=== PATIENT | male | born 1965 | race Caucasian/White ===

== ENCOUNTER 2021-12-11 16:59 | Emergency (ER) | payer OTHER, SELFPAY ==
[2021-12-11 17:02] VITALS: BP 204/107; PULSE 93; RESP 18; TEMP 36.6; O2SAT 98; BMI 34.4
--- NOTE | 2021-12-11 17:31 | CRLHL7_ITS ---
For Patients: As a result of the Century Cures Act, medical imaging exams and procedure reports are released immediately into your electronic medical record. You may view this report before your referring provider. If you have questions, please contact your health care provider. INDICATION: Abdominal pain. TECHNIQUE: CT abdomen and pelvis without contrast. Coronal and sagittal reformats were generated. COMPARISON: CT of the abdomen and pelvis from 05/24/2019. FINDINGS: Lower chest: Unremarkable. Liver: Unremarkable. Gallbladder and bile ducts: Unremarkable. No stones or inflammation. No biliary dilation. Spleen: Unremarkable. Adjacent splenule. Pancreas: Unremarkable. Adrenal glands: Unremarkable. No nodules. Kidneys and Ureters: Distal right ureteral stone measures approximately 4 mm (2/121) and results in mild right hydronephrosis and hydroureter, as well as extensive perinephric stranding and mild edema. Additional stones in the right kidney lie in the lower pole. Nonobstructing stones in the left kidney. Lymph Nodes and Retroperitoneum: Unremarkable. Vasculature: Unremarkable. GI tract: Unremarkable. Normal in caliber. Prominent submucosal fat in the cecum and ascending colon is nonspecific. Diverticula project from the colon, without inflammatory changes to suggest diverticulitis. Peritoneum/Abdominal Wall: Unremarkable. No mass or infiltration. No free air or free fluid. Bilateral fat containing inguinal hernias. Pelvic Viscera: Unremarkable. Bladder: Unremarkable. Bones: Unremarkable for age. IMPRESSION: 1. Distal right ureteral stone results in mild hydronephrosis and perinephric stranding, as well as edematous changes of the kidney. 2. Nonobstructing left renal calculi. Please note that all CT scans at this facility use dose modulation, iterative reconstruction, and/or weight-based dosing when appropriate to reduce radiation dose to as low as reasonably achievable. Dictated by Kvng Ballard MD @ 12/11/2021 6:26:21 PM (Electronically Signed)
[2021-12-11] MEDS: 0.9 % SODIUM CHLORIDE 1000 ml 1,000 ML IV (17:55)
[2021-12-11 18:00] LABS: Lactate* 2.3 mmol/L (0.5-1.9)
[2021-12-11] MEDS: KETOROLAC 30 MG/ML inj IVP (18:00)
[2021-12-11 18:14] VITALS: BP 198/109; PULSE 96; O2SAT 98
[2021-12-11 18:30] VITALS: BP 194/100; PULSE 94; O2SAT 98
[2021-12-11 18:32] LABS: Albumin* 4.4 g/dL (3.3-5.0); Basophils Percent Auto 0.2 % (0.0-3.0); Eosinophils Percent Auto 0.1 % (0.0-7.0); Hematocrit 41.6 % (37.0-53.0); Hemoglobin* 14.7 gm/dL (13.5-17.5); Immature Granulocytes Abs Auto 0.02 K/uL (0.00-0.30); Lymphocytes Percent Auto 17.8 % (20-44); Mean Corpuscular HGB Conc 35 gm/dL (32-36); Mean Corpuscular Hemoglobin 32 pg (26-34); Mean Corpuscular Volume 90 fL (80-100); Monocytes Percent Auto 5.4 % (0.0-11.0); Neutrophils Percent Auto 76.4 % (42.0-72.0); Platelet Count* 227 K/uL (140-440); RDW Coefficient of Variation % 12.7 % (11.5-15.5); Red Blood Count 4.65 m/uL (4.30-5.90); White Blood Count* 13.51 K/uL (4.50-11.00)
--- NOTE | 2021-12-11 18:32 | ED.GENADULT ---
HPI - General Adult General Chief complaint: Abdominal Pain Stated complaint: Kidney stone Time Seen by Provider: 12/11/21 17:11 Source: patient Mode of arrival: ambulatory Limitations: no limitations History of Present Illness HPI narrative: 56-year-old male coming in today complaining of bilateral low back pain that started 1st thing in the morning today. He states that he has had kidney stones in the past that feel just like this, with pain on both sides. He denies fevers or chills. No vomiting but sometimes feels nauseated. He has been drinking lots of fluids today but has had decreased urine output. He has had a couple episodes of loose stools today. The pain radiates into the anterior abdomen, the right side hurts more than the left. No blood in his urine. No blood in his stools. Related Data Home Medications Medication Instructions Recorded Confirmed glimepiride 4 mg tablet mg 12/11/21 rosuvastatin 10 mg tablet mg 12/11/21 Previous Rx's Medication Instructions Recorded ciprofloxacin HCl 500 mg tablet 500 mg PO BID 7 days #14 tabs 12/11/21 ketorolac 10 mg tablet 10 mg PO TID 5 days #15 tabs 12/11/21 Allergies Allergy/AdvReac Type Severity Reaction Status Date / Time Sulfa (Sulfonamide Allergy Verified 12/11/21 17:06 Antibiotics) Review of Systems Status of ROS: Reports: 10 or more systems reviewed and unremarkable except as noted in History and below [facility] Social History Smoking Status: Never smoker Do you use any of these nicotine containing products: None Second hand tobacco smoke exposure: No How often do you have a drink containing alcohol: 2-3 times a week How many standard drinks containing alcohol do you have on a typical day: 1 or 2 How often do you have six or more drinks on one occasion: Never AUDIT-C Alcohol total score: 3 Non-prescribed substance use: denies use service: No Exam Narrative: Exam Narrative: Well-nourished well-developed patient , very uncomfortable. Alert and oriented. Answers questions appropriately. Mood and affect are appropriate. Thoughts are goal oriented and rational. No tangential or magical thinking noted. Patient speaks in full sentences without needing to catch his breath. HEENT: Normocephalic atraumatic. Pupils are equally round reactive to light. Extraocular muscles are intact. Conjunctivae are moist without any icterus noted. Moist mucous membranes. Posterior pharynx is normal. Neck is soft without any lymphadenopathy or thyromegaly. No masses are appreciated. Cardiovascular: Heart is regular rate and rhythm S1 and S2 are present without any murmurs. Lungs: Clear to auscultation bilaterally no wheezes rhonchi or rales are appreciated. Patient takes deep breaths without any discomfort. Abdomen: Soft and nontender with normal bowel sounds. Slightly distended. No guarding or rebound. No masses or organomegaly appreciated. No CVA tenderness. No suprapubic tenderness. Extremities: Bilateral lower extremities are without edema. Normal DP and PT pulses. Skin: Well perfused without any obvious rashes. Const: Vital Signs, click to edit/add: Vital Signs - 24 hr 12/11/21 17:02 12/11/21 18:14 Temperature 97.9 F Pulse Rate [Right Pulse Oximeter] 93 96 Respiratory Rate 18 Blood Pressure [Ri ght Upper Arm] 204/107 H 198/109 H Pulse Oximetry 98 98 Oxygen Delivery Me thod Room Air Room Air Course Course Hospital Course: IV was established, patient received a L of normal saline and IV Toradol. This was followed with IV Dilaudid as he was still in quite a bit of discomfort. Bladder scan was done, showed only about 70 mL in the bladder. Abdominal CT does show a right-sided distal ureteral stone, 4 mm. White cell count was slightly elevated at 13.4, lactate was elevated at 2.3, creatinine slightly elevated at 1.6. After receiving a L of normal saline patient was able to urinate without difficulty. Vital Signs Vital signs: Initial Vital Signs Temperature 97.9 F 12/11/21 17:02 Temperature Source Temporal Artery Scan 12/11/21 17:02 Pulse Rate 93 12/11/21 17:02 Pulse Rhythm 12/11/21 17:02 Respiratory Rate 18 12/11/21 17:02 Blood Pressure 204/107 H 12/11/21 17:02 Blood Pressure Mean 139 12/11/21 17:02 Blood Pressure Position Sitting 12/11/21 17:02 Pulse Oximetry 98 12/11/21 17:02 Oxygen Delivery Method 12/11/21 17:02 Vital Signs Temperature 97.9 F 12/11/21 17:02 Pulse Rate 93 12/11/21 17:02 Respiratory Rate 18 12/11/21 17:02 Blood Pressure 204/107 H 12/11/21 17:02 Pulse Oximetry 98 12/11/21 17:02 Oxygen Delivery Method 12/11/21 17:02 Temperature 97.9 F 12/11/21 17:02 Pulse Rate 96 12/11/21 18:14 Respiratory Rate 18 12/11/21 17:02 Blood Pressure 198/109 H 12/11/21 18:14 Pulse Oximetry 98 12/11/21 18:14 Oxygen Delivery Method 12/11/21 18:14 Medical Decision Making MDM Narrative Medical decision making narrative: 56-year-old male with right-sided 4 mm ureteral kidney stone. Patient has Flomax at home, will increase his fluid intake to at least double he has been taking, will send home with pain medication as well as antibiotics. He will follow up with Urology. I recommend that he call them 1st thing in the morning to make an appointment. He will return to the ER if he develops a fever, vomiting or worsening pain. Patient was agreeable with everything we discussed had no other questions. Medical Records Medical records reviewed: Yes I reviewed the patient's medical records Lab Data Lab results reviewed: Yes I reviewed the patient's lab results Labs: Lab Results 12/11/21 12/11/21 12/11/21 Range/Units 17:55 17:55 17:55 WBC 13.51 H (4.50-11.00) K/uL RBC 4.65 (4.30-5.90) m/uL Hgb 14.7 (13.5-17.5) gm/dL Hct 41.6 (37.0-53.0) % MCV 90 (80-100) fL MCH 32 (26-34) pg MCHC 35 (32-36) gm/dL RDW Coeff of Elfego 12.7 (11.5-15.5) % Plt Count 227 (140-440) K/uL Neut % (Auto) 76.4 H (42.0-72.0) % Lymph % (Auto) 17.8 L (20-44) % Morrison % (Auto) 5.4 (0.0-11.0) % Eos % (Auto) 0.1 (0.0-7.0) % Baso % (Auto) 0.2 (0.0-3.0) % Neut # (Auto) 10.30 H (1.7-7.0) K/uL Lymph # (Auto) 2.40 (0.90-2.90) K/uL Morrison # (Auto) 0.70 (0.00-0.90) K/UL Eos # (Auto) 0.00 (0.00-0.50) K/uL Baso # (Auto) 0.00 (0.00-0.30) K/uL Abs Immat Gran (auto) 0.02 (0.00-0.30) K/uL Sodium 135 (135-149) mmol/L Potassium 4.3 (3.6-5.1) mmol/L Chloride 101 (96-114) mmol/L Carbon Dioxide 23 (20-32) mmol/L BUN 21 (7-30) mg/dL Creatinine 1.6 H (0.5-1.5) mg/dL Estimated Creat Clear 54.50 Estimated GFR 51 ml/min Glucose 103 (60-115) mg/dL Lactate (0.5-1.9) mmol/L Calcium 9.1 (8.4-10.6) mg/dL Total Bilirubin 1.1 (0.1-1.5) mg/dL Direct Bilirubin 0.3 (0.0-0.5) mg/dL AST 30 (12-35) U/L ALT 22 (4-50) U/L Alkaline Phosphatase 95 (40-150) U/L C-Reactive Protein < 0.5 L (0.5-1.0) mg/dL Total Protein 7.6 (6.0-8.3) g/dL Albumin 4.4 (3.3-5.0) g/dL Lipase 77 (23-300) U/L 12/11/21 Range/Units 17:55 WBC (4.50-11.00) K/uL RBC (4.30-5.90) m/uL Hgb (13.5-17.5) gm/dL Hct (37.0-53.0) % MCV (80-100) fL MCH (26-34) pg MCHC (32-36) gm/dL RDW Coeff of Elfego (11.5-15.5) % Plt Count (140-440) K/uL Neut % (Auto) (42.0-72.0) % Lymph % (Auto) (20-44) % Morrison % (Auto) (0.0-11.0) % Eos % (Auto) (0.0-7.0) % Baso % (Auto) (0.0-3.0) % Neut # (Auto) (1.7-7.0) K/uL Lymph # (Auto) (0.90-2.90) K/uL Morrison # (Auto) (0.00-0.90) K/UL Eos # (Auto) (0.00-0.50) K/uL Baso # (Auto) (0.00-0.30) K/uL Abs Immat Gran (auto) (0.00-0.30) K/uL Sodium (135-149) mmol/L Potassium (3.6-5.1) mmol/L Chloride (96-114) mmol/L Carbon Dioxide (20-32) mmol/L BUN (7-30) mg/dL Creatinine (0.5-1.5) mg/dL Estimated Creat Clear Estimated GFR ml/min Glucose (60-115) mg/dL Lactate 2.3 H (0.5-1.9) mmol/L Calcium (8.4-10.6) mg/dL Total Bilirubin (0.1-1.5) mg/dL Direct Bilirubin (0.0-0.5) mg/dL AST (12-35) U/L ALT (4-50) U/L Alkaline Phosphatase (40-150) U/L C-Reactive Protein (0.5-1.0) mg/dL Total Protein (6.0-8.3) g/dL Albumin (3.3-5.0) g/dL Lipase (23-300) U/L Imaging Data CT scan - abdomen: Radiologist's impression: FINDINGS: Lower chest: Unremarkable. Liver: Unremarkable. Gallbladder and bile ducts: Unremarkable. No stones or inflammation. No biliary dilation. Spleen: Unremarkable. Adjacent splenule. Pancreas: Unremarkable. Adrenal glands: Unremarkable. No nodules. Kidneys and Ureters: Distal right ureteral stone measures approximately 4 mm (2) and results in mild right hydronephrosis and hydroureter, as well as extensive perinephric stranding and mild edema. Additional stones in the right kidney lie in the lower pole. Nonobstructing stones in the left kidney. Lymph Nodes and Retroperitoneum: Unremarkable. Vasculature: Unremarkable. GI tract: Unremarkable. Normal in caliber. Prominent submucosal fat in the cecum and ascending colon is nonspecific. Diverticula project from the colon, without inflammatory changes to suggest diverticulitis. Peritoneum/Abdominal Wall: Unremarkable. No mass or infiltration. No free air or free fluid. Bilateral fat containing inguinal hernias. Pelvic Viscera: Unremarkable. Bladder: Unremarkable. Bones: Unremarkable for age. IMPRESSION: 1. Distal right ureteral stone results in mild hydronephrosis and perinephric stranding, as well as edematous changes of the kidney. 2. Nonobstructing left renal calculi. Discharge Plan Discharge Clinical Impression: Calculus of kidney Patient Disposition: Home, Self-Care Condition: Stable Additional Instructions: Take all antibiotics as prescribed. Use pain medication as needed: You have both Toradol which is a strong [id number] should always take this 1st. Hydrocodone is in her cardiac pain medication which he can also take for pain that is not alleviated with Toradol. Call Urology 1st thing in the morning to make a follow-up appointment. Return to the ER if you develop vomiting or fever. Prescriptions: New ketorolac 10 mg tablet 10 mg PO TID 5 Days Qty: 15 0RF ciprofloxacin HCl 500 mg tablet 500 mg PO BID 7 Days Qty: 14 0RF No Action glimepiride 4 mg tablet rosuvastatin 10 mg tablet Follow Up/Referrals: Jorge Newton MD [Primary Care Provider] - Stand Alone Forms: [employer] Info Instructions
[2021-12-11 18:33] LABS: Slide Review Reflex No
[2021-12-11 18:34] LABS: Bilirubin Direct* 0.3 mg/dL (0.0-0.5); Bilirubin Total* 1.1 mg/dL (0.1-1.5); Chloride* 101 mmol/L (96-114); Potassium* 4.3 mmol/L (3.6-5.1); Sodium* 135 mmol/L (135-149)
[2021-12-11 18:35] LABS: Alanine Aminotransferase* 22 U/L (4-50); Alkaline Phosphatase* 95 U/L (40-150); Aspartate Amino Transferase* 30 U/L (12-35); Lipase* 77 U/L (23-300); Total Protein* 7.6 g/dL (6.0-8.3)
[2021-12-11 18:37] LABS: Creatinine* 1.6 mg/dL (0.5-1.5); Estimated Glomerular Filt Rate 51 ml/min
[2021-12-11] MEDS: HYDROmorphone 0.5 mg/0.5 ml inj IVP (18:37)
[2021-12-11 18:38] LABS: Blood Urea Nitrogen* 21 mg/dL (7-30); Calcium* 9.1 mg/dL (8.4-10.6); Carbon Dioxide* 23 mmol/L (20-32); Glucose* 103 mg/dL (60-115)
[2021-12-11 18:59] LABS: C Reactive Protein* < 0.5 mg/dL (0.5-1.0)
[2021-12-11 19:07] LABS: Appearance Urine Clear (Clear); Bilirubin Urine Negative (Negative); Blood Urine Negative (Negative); Color Urine Yellow (Yellow); Glucose Urine Negative (Negative); Ketones Urine Negative (Negative); Leukocyte Esterase Urine Negative (Negative); Nitrite Urine Negative (Negative); Protein Urine 1+ (Negative); Urobilinogen Urine 0.2 (0.2-1.0); pH Urine 5.5 (5.0-8.5)
[2021-12-11 19:21] LABS: Fine Granular Casts Urine Few; RBC Urine 0-2 (0-2); Squamous Epithelial Cell Urine Few (None-Few); WBC Urine 0-2 (0-5)
[2021-12-11 19:30] VITALS: BP 179/90; PULSE 96; RESP 18; TEMP 36.6; O2SAT 97
== END 2021-12-11 19:38 | disposition home or self-care (01) ==
PROVIDERS: Emergency Provider Family Medicine; PCP Family Medicine
DX: N20.0 Calculus of kidney (principal); Z87.442 Personal history of urinary calculi
CPT/HCPCS: 36415; 74176; 80048; 80076; 81001; 83605; 83690; 85025; 86140; 87086; 96361; 96374; 96375; 99284; J1170; J1885; J7030

== ENCOUNTER 2022-02-23 13:36 | Outpatient (CLI) | payer OTHER, SELFPAY ==
[2022-02-23 14:45] LABS: Creatinine Urine 82.2 mg/dL
[2022-02-23 14:46] LABS: Chloride* 102 mmol/L (96-114); Potassium* 4.3 mmol/L (3.6-5.1); Sodium* 136 mmol/L (135-149)
[2022-02-23 14:48] LABS: Alkaline Phosphatase* 107 U/L (40-150); Aspartate Amino Transferase* 45 U/L (12-35); Bilirubin Total* 0.6 mg/dL (0.1-1.5); Carbon Dioxide* 23 mmol/L (20-32); Cholesterol* 160 mg/dL (90-199); Creatinine* 1.1 mg/dL (0.5-1.5); Estimated Glomerular Filt Rate 80 ml/min; Microalbumin Creatinine Ratio 190 mg/g (0-30); Microalbumin Urine 16 mg/dL; Total Protein* 6.7 g/dL (6.0-8.3)
[2022-02-23 14:49] LABS: Alanine Aminotransferase* 31 U/L (4-50); Blood Urea Nitrogen* 16 mg/dL (7-30); Calcium* 8.3 mg/dL (8.4-10.6); Glucose* 193 mg/dL (60-115); HDL Cholesterol* 69 mg/dL (>=40); LDL Cholesterol Calculated 27 mg/dL (<100); Triglycerides* 321 mg/dL (40-149)
== END 2022-02-23 13:37 | disposition home or self-care (01) ==
PROVIDERS: PCP Family Medicine; Visit Provider Family Medicine
DX: E11.9 Type 2 diabetes mellitus without complications (principal); Z13.6 Encounter for screening for cardiovascular disorders
CPT/HCPCS: 80053; 80061; 82043; 82570

== ENCOUNTER 2023-04-07 08:02 | Outpatient (CLI) | payer OTHER, SELFPAY | END 2023-04-07 08:03 | disposition home or self-care (01) | LOC: NFLDREF 04-08 11:08 | PROVIDERS: PCP Family Medicine; Referring Provider Family Medicine; Visit Provider Family Medicine | DX: E11.9 Type 2 diabetes mellitus without complications (principal) | CPT/HCPCS: 80053; 80061; 82043; 82570 ==

== ENCOUNTER 2023-04-30 14:00 | Outpatient (CLI) | payer OTHER, SELFPAY | END 2023-04-30 14:01 | disposition home or self-care (01) | PROVIDERS: PCP Family Medicine; Referring Provider Family Medicine; Visit Provider Family Medicine | DX: R80.9 Proteinuria, unspecified (principal) | CPT/HCPCS: 82570; 84156 ==

== ENCOUNTER 2023-05-10 14:22 | Outpatient (CLI) | payer OTHER, SELFPAY ==
--- OUTSIDE RECORDS SUMMARY | 2023-05-12 12:59 | XMS_ITS | Encounter Summary ---
Author Name Unknown Organization [facility] Address [address] [place] [address]. [address] Care Team Providers Care Sponsorship Coordinator Name Role Phone Jorge Newton MD Primary Care Provider [phone] Reason for Referral * Consultation (Routine) - Pending Review Specialty Diagnoses / Procedures Referred By Yann diaz Referred To Contact Nephrology Diagnoses Proteinuria, unspecified Jorge Newton MD [facility] [address] [address] Referral ID Status Reason Start Date Expiration Date V isits Requested Visits Authorized [id number] Pending Review 04/28/2023 04/27/2024 1 1 Question Answer Reason for Referral: Proteinuria Scheduling Instructions: [facility] will call you to coordinate your care as prescribed by the provider. If you don? t hear from a dental sales representative within 2 business days, please call [phone]. Comments Referred by Jorge Newton [facility] [address] [facility] [address] (P)[phone] (F) N/A Please be aware that coverage of these services is subject to the terms and limitations of your health insurance plan. Call member services at your health plan with any benefit or coverage questions. [facility] will call you to coordinate your care as prescribed by the provider. If you don? t hear from a dental sales representative within 2 business days, please call [phone]. [facility] FETAL PHYSICIAN Encounter Details Date Type Department Care Team (Latest Contact Info) Description 04/28/2023 Transcribe Orders GENERIC EXTERNAL DATA DEPARTMENT Jorge Newton MD [facility] [address] [address] Proteinuria, unspecified (Primary Dx) Social History Tobacco Use Types Packs/Day Years Used Date Smoking Tobacco: Never Assessed Sex and Gender Information Value Date Recorded Sex Assigned at Not on file Gender Identity Not on file Sexual Orientation Not on file documented as of this encounter Plan of Treatment Scheduled Referrals Name Type Priority Associated Diagnoses Orde r Schedule Adult Nephrology Etl Bi Developer Referral Referral Routine Proteinuria, unspecified Expected: 04/28/2023 (Approximate), Expires: 04/28/2024 documented as of this encounter Visit Diagnoses Diagnosis Proteinuria, unspecified- Primary documented in this encounter Care Teams Sponsorship Coordinator Relationship Specialty Start Date End Date Jorge Newton MD PCP - General Family Practice 11/06/19 documented as of this encounter
--- OUTSIDE RECORDS SUMMARY | 2023-05-12 12:59 | XMS_ITS | Clinical Summary ---
Author Name Unknown Organization [facility] Address [address] [place] [address] Care Team Providers Care [employer] Name Role Phone Jorge Newton MD Primary Care Provider [phone] Allergies Active Allergy Reactions Criticality Noted Date Comments Hydrocodone Anaphylaxis High 11/06/2019 Sulfa Antibiotics Anaphylaxis High 11/06/2019 Medications Medication Sig Dispensed Refills Start Date End Date Status albuterol (PROAIR HFA/PROVENTIL HFA/VENTOLIN HFA) 108 (90 Base) MCG/ACT inhaler Inhale 1-2 puffs into the lungs every 4 hours as needed for shortness of breath / dyspnea or wheezing 0 Active fexofenadine (CHHAYA) 180 MG tablet Take 180 mg by mouth daily as needed for allergies 0 Active glipiZIDE (GLUCOTROL XL) 5 MG 24 hr tablet Take 5 mg by mouth daily 0 Active amLODIPine (NORVASC) 10 MG tablet Take 10 mg by mouth daily 0 Active montelukast (SINGULAIR) 10 MG tablet Take 10 mg by mouth At Bedtime 0 Active fluticasone-salmeter ol (ADVAIR) 250-50 MCG/DOSE inhaler Inhale 1 puff into the lungs 2 times daily as needed (shortness of breath) 0 Active escitalopram (LEXAPRO) 20 MG tabletIndications:Ma maxwell depressive disorder, recurrent episode, in partial remission (H24) Take 1 tablet (20 mg) by mouth daily 30 tablet 1 11/10/2019 Active traZODone (DESYREL) 50 MG tabletIndications:In somnia, unspecified type Take 1 tablet (50 mg) by mouth nightly as needed for sleep 30 tablet 1 11/09/2019 Active Active Problems Problem Noted Date Diagnosed Date Mental health disorder 11/06/2019 Encounters Date Type Department Care Team Description 04/28/2023 Transcribe Orders GENERIC EXTERNAL DATA DEPARTMENT Jorge Newton MD Proteinuria, unspecified (Primary Dx) 04/27/2023 Medical Correspondence [facility] [address] [facility] [address] Scan, Non-Provider NEPHROLOGY REFERRAL [facility] from Last 3 Months Social History Tobacco Use Types Packs/Day Years Used Date Smoking Tobacco: Never Assessed Sex and Gender Information Value Date Recorded Sex Assigned at Not on file Gender Identity Not on file Sexual Orientation Not on file Last Filed Vital Signs Vital Sign Reading Time Taken Comments Blood Pressure 153/84 11/09/2019 3:00 PM CDT Pulse 93 11/09/2019 3:00 PM CDT Temperature 36.8 ??C (98.3 ??F) 11/10/2019 8:24 AM CD T Respiratory Rate 16 11/09/2019 7:56 AM CDT Oxygen Saturation 98% 11/09/2019 3:00 PM CDT Inhaled Oxygen Concentration - - Weight 100.8 kg (222 lb 3.2 oz) 11/09/2019 7:56 AM CDT Height 180.3 cm (5' 11) 11/06/2019 7:00 PM CDT Body Mass Index 30.99 11/06/2019 7:00 PM CDT Plan of Treatment Health Maintenance Due Date Last Done Comments ADVANCE CARE PLANNING 1967 ANNUAL REVIEW OF HM ORDERS 1967 CT COLONOGRAPHY 1967 FIT 1967 FLEX SIG 1967 HEPATITIS B IMMUNIZATION (1 of 3 - 3-dose series) 1967 YEARLY PREVENTIVE VISIT 1967 sDNA (Cologuard) 1967 COLONOSCOPY 10/29/1977 COLORECTAL CANCER SCREENING 10/29/1977 HIV SCREENING 10/29/1982 HEPATITIS C SCREENING 10/29/1985 DTAP/TDAP/TD IMMUNIZATION (2 - Td or Tdap) 01/12/2023 01/12/2013, 01/07/2005 PHQ-2 (once per calendar year) 2023 LIPID 11/06/2024 11/07/2019 Pneumococcal Vaccine: Pediatrics (0 to 5 Years) and At-Risk Patients (6 to 64 Years) Aged Out 12/21/2015, 07/23/2009 No longer eligibl e based on patient's age to complete this topic ZOSTER IMMUNIZATION Completed 08/25/2018, 05/12/2018, 04/24/2018 COVID-19 Vaccine Completed 03/02/2023, , 08/03/2021, Additional history exists INFLUENZA VACCINE Completed 03/02/2023, , 01/21/2021, Additional history exists HPV IMMUNIZATION Aged Out No longer e ligible based on patient's age to complete this topic IPV IMMUNIZATION Aged Out No longer e ligible based on patient's age to complete this topic MENINGITIS IMMUNIZATION Aged Out No l onger eligible based on patient's age to complete this topic RSV MONOCLONAL ANTIBODY Aged Out No l onger eligible based on patient's age to complete this topic Procedures Procedure Name Priority Date/Time Associated Diagnosis Comments LAB RESULT - HIM SCAN 04/07/2023 12:00 AM BORING MACHINE OPERATOR HORIZONTAL from Last 3 Months Results * LAB RESULT - HIM SCAN (04/07/2023 12:00 AM BORING MACHINE OPERATOR HORIZONTAL) 04/07/2023 Provider Outside NON-BEAKER LAB TE STING from Last 3 Months Advance Directives For more information, please contact: [phone] Latest Code Status on File Code Status Date Activated Date Inactivated Comments Full Code 11/06/2019 8:29 PM 11/10/2019 2:42 PM All b asic and advanced life-sustaining interventions are performed as appropriate Question Answer Comments Code status determined by: Discussion with patient/ legal decision maker Care Teams [employer] Relationship Specialty Start Date End Date Jorge Newton MD PCP - General Family Practice 11/06/19
--- OUTSIDE RECORDS SUMMARY | 2023-05-12 12:59 | XMS_ITS | Referral Summary ---
Author Name Unknown Organization [facility] Address [facility] [facility] [place] [address] Care Team Providers Care Solution Spec Name Role Phone Jorge Newton MD Primary Care Provider [phone] Encounters Date Type Department Care Team Description 04/28/2023 Transcribe Orders GENERIC EXTERNAL DATA DEPARTMENT Jorge Newton MD Proteinuria, unspecified (Primary Dx) 04/27/2023 Medical Correspondence [facility] [address] [place] [address] Scan, Non-Provider NEPHROLOGY REFERRAL [facility] from Last 3 Months Allergies Active Allergy Reactions Criticality Noted Date [...] breath) 0 Active escitalopram (LEXAPRO) 20 MG tabletIndications:Diana arreola depressive disorder, recurrent episode, in partial remission (H24) Take 1 tablet (20 mg) by mouth daily 30 tablet 1 11/10/2019 Active traZODone (DESYREL) 50 MG tabletIndications:In somnia, unspecified type Take 1 tablet (50 mg) by mouth nightly as needed for sleep 30 tablet 1 11/09/2019 Active Active Problems Problem Noted Date Diagnosed Date Mental health disorder 11/06/2019 Social History Tobacco Use Types Packs/Day Years [...] 11/06/2019 7:00 PM CDT Plan of Treatment Not on file Procedures Procedure Name Priority Date/Time Associated Diagnosis Comments LAB RESULT - HIM SCAN 04/07/2023 12:00 AM PRIMARY MILL ROLLER from Last 3 Months Results * LAB RESULT - HIM SCAN (04/07/2023 12:00 AM PRIMARY MILL ROLLER) 04/07/2023 Provider Outside NON-BEAKER LAB TE STING from Last 3 Months Advance Directives For more information, please contact: [phone] Latest Code Status on File Code Status Date Activated Date Inactivated Comments Full Code 11/06/2019 8:29 PM 11/10/2019 2:42 PM All b asic and advanced life-sustaining interventions are performed as appropriate Question Answer Comments Code status determined by: Discussion with patient/ legal decision maker Care Teams Solution Spec Relationship Specialty Start Date End Date Jorge Newton MD PCP - General Family Practice 11/06/19
--- OUTSIDE RECORDS SUMMARY | 2023-05-12 12:59 | XMS_ITS | Encounter Summary ---
Author Name Unknown Organization [place] Address [facility] [facility] [place] [address] Care Team Providers Care Director Broadcast Name Role Phone Jorge Newton MD Primary Care Provider [phone] Encounter Details Date Type Department Care Team (Latest Contact Info) Description 04/27/2023 Medical Correspondence [facility] [address] [place] [address] Scan, Non-Provider NEPHROLOGY REFERRAL [facility] Social History Tobacco Use Types Packs/Day Years Used Date Smoking Tobacco: Never Assessed Sex and Gender Information Value Date Recorded Sex Assigned at Not on file Gender Identity Not on file Sexual Orientation Not on file documented as of this encounter Plan of Treatment Not on file documented as of this encounter Visit Diagnoses Not on filedocumented in this encounter Care Teams Director Broadcast Relationship Specialty Start Date End Date Jorge Newton MD PCP - General Family Practice 11/06/19 documented as of this encounter
--- OUTSIDE RECORDS SUMMARY | 2023-05-12 12:59 | XMS_ITS | Clinical Summary ---
Author Name Unknown Organization [facility] Address [place], [place] [address] Care Team Providers Care Forging Die Sinker Name Role Phone Unavailable Primary Care Provider Unavailabl e Allergies Active Allergy Reactions Criticality Noted Date Comments Oxycodone-Acetaminophen Rash 04/20/2011 Sulfa (Sulfonamide Antibiotics) Anaphylaxis 11/2011 Hydrocodone-Acetaminophen Rash 04/20/2011 Medications Medication Sig Dispensed Refills Start Date End Date Status citalopram (CELEXA) 40 mg tablet Take 40 mg by mouth once daily. 0 Active propranolol (INDERAL) 40 mg tablet Take 40 mg by mouth 2 times daily. 0 Active metFORMIN (GLUCOPHAGE) 500 mg tablet Take 500 mg by mouth 2 times daily with meals. 0 Active lisinopril (PRINIVIL; ZESTRIL) 40 mg tablet Take 40 mg by mouth once daily. 0 Active simvastatin (ZOCOR) 40 mg tablet Take 40 mg by mouth at bedtime. 0 Active acetaminophen-code ine, 300-30 mg, (TYLENOL #3) 300-30 mg tablet Take 1-2 tablets by mouth every 4 hours if needed for Pain. Max acetaminophen dose: 4000mg in 24 hrs. 30 tablet 0 04/20/2011 Active oxybutynin (DITROPAN) 5 mg tablet Take 1 tablet by mouth 3 times daily. Take one every 8 to 12 hours IF NEEDED for bladder spasm or troublesome urinary frequency. 20 tablet 1 04/20/2011 Active Social History Tobacco Use Types Packs/Day Years Used Date Smoking Tobacco: Never Assessed Sex and Gender Information Value Date Recorded Sex Assigned at Not on file Gender Identity Not on file Sexual Orientation Not on file Obstetrics History Last Filed Vital Signs Vital Sign Reading Time Taken Comments Blood Pressure 146/80 04/20/2011 3:00 PM AUTOMATIC LATHE SETTER Pulse 61 04/20/2011 3:00 PM AUTOMATIC LATHE SETTER Temperature 36 ??C (96.8 ??F) 04/20/2011 1:30 PM AUTOMATIC LATHE SETTER Respiratory Rate 16 04/20/2011 3:00 PM AUTOMATIC LATHE SETTER Oxygen Saturation 98% 04/20/2011 1:30 PM AUTOMATIC LATHE SETTER Inhaled Oxygen Concentration - - Weight 100.2 kg (220 lb 14.4 oz) 04/20/2011 9:07 AM AUTOMATIC LATHE SETTER Height 177.8 cm (5' 10) 04/20/2011 9:07 AM AUTOMATIC LATHE SETTER Body Mass Index 31.7 04/20/2011 9:07 AM AUTOMATIC LATHE SETTER Plan of Treatment Not on file Medical Devices Implanted Type Area Blown Film Extrusion Operator Device Identifier Shelf Expiration Date Model / Serial / Lot Stent Contour [id number] - [id number] Implanted:Qty: 1 on 04/20/2011 at [facility] Left: Ureter [facility] Urology [id number] / / [id number] Advance Directives Latest Code Status on File Code Status Date Activated Date Inactivated Comments Full Code 04/20/2011 8:28 AM 04/20/2011 6:30 PM
== END 2023-05-10 14:23 | disposition home or self-care (01) ==
LOC: NFLDREF 05-12 12:57
PROVIDERS: PCP Family Medicine; Referring Provider Family Medicine; Visit Provider Internal Medicine Nephrology
DX: R80.9 Proteinuria, unspecified (principal)
CPT/HCPCS: 82043; 82570; 83520; 84165; 86140; 86255; 86334

== ENCOUNTER 2023-05-17 10:40 | Outpatient (CLI) | payer OTHER, SELFPAY ==
--- NOTE | 2023-05-17 11:00 | CRLHL7_ITS ---
For Patients: As a result of the Cures Act, medical imaging exams and procedure reports are released immediately into your electronic medical record. You may view this report before your referring provider. If you have questions, please contact your health care provider. INDICATION: Proteinuria TECHNIQUE: Grayscale, color Doppler and power Doppler ultrasound of the kidneys and renal arteries performed. COMPARISON: CT 12/11/2021 FINDINGS: BILATERAL RENAL ARTERY DUPLEX ULTRASOUND ABDOMINAL AORTA: Peak systolic velocity = 110 cm/s. No aortic aneurysm. RIGHT KIDNEY: 12.1 cm in length. There is no hydronephrosis. Peak systolic velocity = unable to visualize due to bowel gas. Renal artery to aortic peak systolic velocity ratio = unable to visualized due to bowel gas. Resistive indices: 0.7 Renal vein = patent LEFT KIDNEY: 11.2 cm in length. There is no hydronephrosis. Peak systolic velocity = 125 cm/second Renal artery to aortic peak systolic velocity ratio = 0.9 Resistive indices: 0.7 Renal vein = patent IMPRESSION: No evidence of significant renal artery stenosis within the left renal artery. The right renal artery cannot be evaluated due to overlying bowel gas. Dictated by Moisés Li MD @ 05/18/2023 6:27:55 AM (Electronically Signed)
== END 2023-05-17 10:41 | disposition home or self-care (01) ==
PROVIDERS: PCP Family Medicine; Visit Provider Internal Medicine Nephrology
DX: R80.9 Proteinuria, unspecified (principal); N18.9 Chronic kidney disease, unspecified
CPT/HCPCS: 76775; 81528; 82340; 82436; 82507; 83735; 83945; 83986; 84105; 84133; 84300; 84392; 84560; 93975

== ENCOUNTER 2023-07-29 16:14 | Emergency (ER) | payer OTHER, SELFPAY ==
[2023-07-29 16:24] VITALS: BP 146/87; PULSE 112; RESP 22; TEMP 36.6; O2SAT 99; BMI 31.2
--- NOTE | 2023-07-29 16:54 | CT_ITS ---
Patient: JUANITA MCCULLOUGH Facility:?[facility] Patient ID:?[id number] Site Patient ID:?[id number] Site :?[id number] Study:?CT-Abdomen/Pelvis 110CC ISOVUE 370-07/29/2023 6:08:48 PM Ordering Physician:?DR. GEORGES Final Report: INDICATION: Vomiting X 2 weeks. TECHNIQUE: CT abdomen and pelvis acquired with 110 mL Isovue 370 contrast. COMPARISON: CT abdomen/pelvis dated 12/11/2021. FINDINGS: Lower chest: No focal consolidation. Liver: Diffuse hepatic steatosis. Gallbladder and bile ducts: Unremarkable. Pancreas: Unremarkable. Spleen: Unremarkable. Splenule is noted. Adrenal glands: Unremarkable. Kidneys: Kidneys enhance symmetrically, without hydronephrosis. Too small to characterize hypodense bilateral renal lesions. Retroperitoneum: No lymphadenopathy. Bowel and mesentery: Bowel is not obstructed. No significant ascites, no pneumoperitoneum. Scattered colonic diverticulosis, without evidence of acute diverticulitis. Multiple segments of fatty infiltration along the colonic wall. Bladder: Stable mild fatty infiltration along the anterior bladder wall with pericystic fat stranding. Reproductive organs: No prostatomegaly. Pelvic lymph nodes: No lymphadenopathy. Vessels: Scattered atherosclerotic calcifications. Abdominal wall: No acute abdominal wall abnormality. Bones: Multilevel degenerative changes of the spine. Bones are osteopenic. IMPRESSION: 1. Diffuse hepatic steatosis. 2. Multiple segments of fatty infiltration involving the colonic wall, nonspecific, can be seen in setting of chronic inflammation such as with inflammatory bowel disease. 3. Stable/chronic fatty infiltration of the anterior bladder wall, with pericystic fat stranding. Please note that all CT scans at this facility use dose modulation, iterative reconstruction, and/or weight-based dosing when appropriate to reduce radiation dose to as low as reasonably achievable. Dictated by Chiki Kuhn MD @ 07/29/2023 6:57:33 PM Signed by:?Chiki Kuhn MD @07/29/2023 6:57:33 PM (Electronic Signature)
--- NOTE | 2023-07-29 16:57 | ED.NAVMDI ---
HPI - Nausea/Vomiting/Diarrhea General Chief complaint: Nausea/Vomiting Stated complaint: vomiting Time Seen by Provider: 07/29/23 16:42 Source: patient Mode of arrival: ambulatory Limitations: no limitations History of Present Illness HPI Narrative: Patient is a 57-year-old male presenting to the emergency department for is episodes of vomiting. He states for the past 2 weeks every day when he wakes up either right after he wakes up for an hour after he will have severe uncontrollable vomiting bowel because him to be violently vomiting for about 5 minutes. I he would have no preceding nausea or abdominal pain before this happens in right after it is done he feels back to normal. This was symptoms happened middle of the day and does not seem at all related to when he is eating. States he had somewhat similar symptoms several years ago when he went to kidney failure secondary to metformin. His kidneys have since fully recovered. For denies fevers, chills, chest pain, shortness of breath, weakness, numbness, abdominal pain, diarrhea, constipation, fevers, chills. States he has been eating and drinking otherwise normally and has had normal bowel movements. No other concerns noted at this time. Did see his primary care provider this morning and they did try prescribe him Zofran but he is not think lateral help. Patient is hoping to get an EGD done. Related Data Home Medications Medication Instructions Recorded Confirmed chlorthalidone 25 mg tablet 12.5 mg PO QAM 07/29/23 ondansetron 4 mg disintegrating mg PO 07/29/23 tablet Previous Rx's Medication Instructions Recorded citalopram 40 mg tablet (Celexa) 40 mg PO QDAY #90 tabs 04/27/23 glimepiride 4 mg tablet 4 mg PO QDAY #90 tabs 04/27/23 rosuvastatin 10 mg tablet 10 mg PO QDAY #90 tabs 04/27/23 sildenafil 50 mg tablet 25 - 50 mg (0.5 - 1 x 50 mg) PO 04/27/23 QDAY PRN sexual activity #30 tabs metoclopramide HCl 10 mg tablet 10 mg PO Q8H nausea and vomiting 07/29/23 (Reglan) #20 tabs Allergies Allergy/AdvReac Type Severity Reaction Status Date / Time metformin Allergy Severe kidney Verified 07/29/23 18:09 failure oxycodone Allergy Mild Rash Verified 07/29/23 18:09 hydrocodone Allergy Unknown Verified 07/29/23 18:09 Sulfa (Sulfonamide Allergy Verified 07/29/23 18:09 Antibiotics) Lisinopril Allergy Severe Uncoded 07/29/23 18:09 Review of Systems Status of ROS: Reports: 10 or more systems reviewed and unremarkable except as noted in History and below PFS PFS Medical History Erectile disorder ?N52.9 - Male erectile dysfunction, unspecified (ICD-10) Encounter for routine history and physical examination of adult ?Z00.00 - Encounter for general adult medical examination without abnormal findings (ICD-10) Surgical History Status post vasectomy ?Z98.52 - Vasectomy status (ICD-10) Status post appendectomy ?Z90.49 - Acquired absence of other specified parts of digestive tract (ICD-10) History of pyloroplasty ?Z98.890 - Other specified postprocedural states (ICD-10) Social History Smoking Status: Never smoker Do you use any of these nicotine containing products: None Second hand tobacco smoke exposure: No How often do you have a drink containing alcohol: 2-3 times a week How many standard drinks containing alcohol do you have on a typical day: 1 or 2 How often do you have six or more drinks on one occasion: Never AUDIT-C Alcohol total score: 3 Non-prescribed substance use: denies use Little interest or pleasure in doing things: not at all Feeling down, depressed, or hopeless: not at all service: No Exam Narrative: Exam Narrative: Const: Well-nourished, Well-developed, in no distress Eyes: PERRL, no conjunctival injection, and symmetrical lids HENT: Atraumatic external nose and ears. Moist mucous membranes. Neck: Symmetric, trachea midline, No thyromegaly. CVS: RRR, No murmurs or gallops. Peripheral pulses 2+ and equal in all extremities RESP: Unlabored respiratory effort. Clear to auscultation bilaterally. GI: Nontender/Nondistended, No rebound or guarding. MSK:Extremities w/o deformity, Normal Active ROM Skin: Warm, Dry. No rashes or lesions. Neuro: Normal Muscle tone, No focal neurological deficits. Psych: Awake, Alert, & Oriented x3. Appropriate mood and affect. Const: Vital Signs, click to edit/add: Vital Signs - 24 hr 07/29/23 16:24 Temperature 97.9 F Pulse Rate [Pulse Oximeter] 112 H Respiratory Rate 22 Blood Pressure [Ri ght Upper Arm] 146/87 H Pulse Oximetry 99 Oxygen Delivery Me thod Room Air Course Vital Signs Vital signs: Initial Vital Signs Temperature 97.9 F 07/29/23 16:24 Temperature Source Temporal Artery Scan 07/29/23 16:24 Pulse Rate 112 H 07/29/23 16:24 Respiratory Rate 22 07/29/23 16:24 Blood Pressure 146/87 H 07/29/23 16:24 Blood Pressure Mean 106 H 07/29/23 16:24 Blood Pressure Position Sitting 07/29/23 16:24 Pulse Oximetry 99 07/29/23 16:24 Oxygen Delivery Method Room Air 07/29/23 16:24 Vital Signs Temperature 97.9 F 07/29/23 16:24 Pulse Rate 112 H 07/29/23 16:24 Respiratory Rate 22 07/29/23 16:24 Blood Pressure 146/87 H 07/29/23 16:24 Pulse Oximetry 99 07/29/23 16:24 Oxygen Delivery Method Room Air 07/29/23 16:24 Temperature 97.9 F 07/29/23 16:24 Pulse Rate 112 H 07/29/23 16:24 Respiratory Rate 22 07/29/23 16:24 Blood Pressure 146/87 H 07/29/23 16:24 Pulse Oximetry 99 07/29/23 16:24 Oxygen Delivery Method Room Air 07/29/23 16:24 Medications Administered Medications: Discontinued Medications Generic Name Dose Route Start Last Admin Trade Name Freq PRN Reason Stop Dose Admin Sodium Chloride 1,000 mls @ 1,000 mls/hr 07/29/23 17:00 07/29/23 18:23 0.9 % Sodium Chloride 1000 Ml IV 07/29/23 17:59 Infused .Q1H CINDY Infusion MDM - Nausea/Vomiting/Diarrhea MDM Narrative Medical decision making narrative: Patient is a 57-year-old male presenting to emergency department for vomiting. No preceding nausea and states it just occurs and is rather vicious he states. States he cannot keep living like this. He is hoping to get an EGD. Since we cannot do that straight all the ED I am okay with ordering it as an outpatient. He is agreeable to this plan. Since he is here though I will repeat his CBC, CMP, lipase. Will also do a CT scan of the abdomen and pelvis. He did note on his labs earlier today he had a sodium of 127. This might be from his vomiting but I will give him a L of normal saline. CBC returned showing no concerning findings. CMP returned the sodium of 129 which is better than it was earlier. He did receive the 1 L fluids. Kidney function within normal limits. The 1 odd finding is his elevated AST and ALT along with his alk-phos. Bilirubin is within normal limits. AST is 399 and ALT is 160. All his previous lab work had liver enzymes well within normal limits. He has no history of recent unprotected protective sex, states he has never used IV drugs, denies any recent travel, states he only rarely drinks alcohol. He is never been told he has liver disease before. CT scan refill returned showing diffuse hepatic steatosis. There is also multiple segments of fatty infiltration along the colonic wall which can be a sign of chronic inflammation which can be seen in inflammatory bowel disease. Hepatitis panel was ordered but this will be a send out. At this point he will be discharged home. I did put an order for an outpatient EGD. I informed him to have close follow-up with his primary care provider about the findings today. I will try placing him on Reglan as he is diabetic and this could be related to gastroparesis. Was there are some history of regular and cause in elevated liver enzymes is typically related to gallbladder order and do not commonly see aminotransferase elevations which is what he currently has. Due To that I believe he is safe to start him on it. Lab Data Labs: Lab Results 07/29/23 07/29/23 07/29/23 Range/Units 17:06 18:24 19:32 WBC 8.58 (4.50-11.00) K/uL RBC 4.61 (4.30-5.90) m/uL Hgb 14.7 (13.5-17.5) gm/dL Hct 42.1 (37.0-53.0) % MCV 91 (80-100) fL MCH 32 (26-34) pg MCHC 35 (32-36) gm/dL RDW Coeff of Elfego 13.3 (11.5-15.5) % Plt Count 210 (140-440) K/uL Neut % (Auto) 61.0 (42.0-72.0) % Lymph % (Auto) 32.1 (20-44) % [place] % (Auto) 6.1 (0.0-11.0) % Eos % (Auto) 0.1 (0.0-7.0) % Baso % (Auto) 0.6 (0.0-3.0) % Neut # (Auto) 5.24 (1.7-7.0) K/uL Lymph # (Auto) 2.75 (0.90-2.90) K/uL [place] # (Auto) 0.50 (0.00-0.90) K/UL Eos # (Auto) 0.01 (0.00-0.50) K/uL Baso # (Auto) 0.05 (0.00-0.30) K/uL Abs Immat Gran (auto) 0.01 (0.00-0.30) K/uL Imm/Tot Granulo (auto) 0.1 % INR 0.97 (0.91-1.10) Sodium 129 L (135-149) mmol/L Potassium 4.1 (3.6-5.1) mmol/L Chloride 93 L (96-114) mmol/L Carbon Dioxide 29 (20-32) mmol/L Anion Gap 7 (7-15) mEq/L BUN 23 (7-30) mg/dL Creatinine 1.4 (0.5-1.5) mg/dL Estimated Creat Clear 63.50 Estimated GFR 59 ml/min Glucose 187 H (60-115) mg/dL Calcium 8.6 (8.4-10.6) mg/dL Total Bilirubin 1.5 (0.1-1.5) mg/dL AST 399 H (12-35) U/L ALT 160 H (4-50) U/L Alkaline Phosphatase 265 H (40-150) U/L Total Protein 7.8 (6.0-8.3) g/dL Albumin 4.1 (3.3-5.0) g/dL Lipase 338 H (23-300) U/L Hepatitis A Ab Total Cancelled Hep Bs Antigen Cancelled Hepatitis C Antibody Cancelled Lab Acknowledgement Test Added Imaging Data CT scan abdomen pelvis: Attestation: I have reviewed the pertinent imaging results. Radiologist's impression: 1. Diffuse hepatic steatosis. 2. Multiple segments of fatty infiltration involving the colonic wall, nonspecific, can be seen in setting of chronic inflammation such as with inflammatory bowel disease. 3. Stable/chronic fatty infiltration of the anterior bladder wall, with pericystic fat stranding. Please note that all CT scans at this facility use dose modulation, iterative reconstruction, and/or weight-based dosing when appropriate to reduce radiation dose to as low as reasonably achievable. Dictated by Chiki Kuhn MD @ 07/29/2023 6:57:33 PM Discharge Plan Discharge Clinical Impression: Hepatic steatosis Vomiting Qualifiers: Vomiting type: unspecified Nausea presence: without nausea Qualified Code(s): R11.11 - Vomiting without nausea Patient Disposition: Home, Self-Care Condition: Stable Instructions: Non-Alcoholic Fatty Liver Disease (ED) Additional Instructions: You will be given a prescription for Reglan. Of give your take home dose to take in the morning. Take it regularly 3 times a day for next few days to see if it helps with your symptoms. If you do not notice any improvement he can stop taking it. If you start having severe muscle stiffness or uncontrolled muscle movements stop taking the medicine. Follow-up with the primary care provider in the morning to inform him of your findings of elevated liver enzymes along with the chronic inflammation in your colon. I did order an outpatient EGD and they should call you either tomorrow or Wednesday to set up an appointment. If your hepatitis panel is positive I will call you Wednesday evening otherwise. If you do not hear back from a presume it is negative. You can also check your patient portal over the weekend to see results have come back at Prescriptions: New metoclopramide HCl [Reglan] 10 mg tablet 10 mg PO Q8H Qty: 20 0RF No Action citalopram [Celexa] 40 mg tablet 40 mg PO QDAY Qty: 90 3RF glimepiride 4 mg tablet 4 mg PO QDAY Qty: 90 1RF rosuvastatin 10 mg tablet 10 mg PO QDAY Qty: 90 3RF sildenafil 50 mg tablet 25 - 50 mg PO QDAY PRN (Reason: sexual activity) Qty: 30 5RF Rx Instructions: administer 30 minutes to 4 hours before activity ondansetron 4 mg tablet,disintegrating PO chlorthalidone 25 mg tablet 12.5 mg PO QAM Follow Up/Referrals: Jorge Newton MD [Primary Care Provider] - Stand Alone Forms: [employer] Info Instructions
--- OUTSIDE RECORDS SUMMARY | 2023-07-29 17:04 | XMS_ITS ---
Author Name Unknown Organization [facility] Address [address] [place] [address] Care Team Providers Care Disk And Tape Machine Tender Name Role Phone Unavailable Unavailable Unavailable Surgery Details Not on file Complications Check Surgery Details section. Procedure Estimated Blood Loss Check Surgery Details section. Procedure Findings Check Surgery Details section. Procedure Specimens Taken Check Surgery Details section.
--- OUTSIDE RECORDS SUMMARY | 2023-07-29 17:04 | XMS_ITS | Referral Summary ---
Author Name Unknown Organization [facility] Address [address] [place] [id number] Care Team Providers Care Glass Carrier Name Role Phone Unavailable Primary Care Provider Unavailabl e Source Comments Patient records contain information from all sites at [facility]. For routine questions regarding patient records, call [phone] during business hours, M-F 8:00 AM - 5:00 PM Central Time. Record requests for emergency care only can be directed to [phone] at any time.[facility] Encounters Date Type Department Care Team Description 07/19/2023 Clinical Communication Division of Nephrology and Hypertension in [place], [place] [address] [place] [address] Randy Sanchez Jr., D.O. chlorthalidone side effects 06/18/2023 Documentation Division of Nephrology and Hypertension in [place], [place] [address] [place] [phone] Randy Sanchez Jr., D.O. 06/18/2023 Orders Only Division of Nephrology and Hypertension in [place], [place] [address] [place] [address] Randy Sanchez Jr., D.O. 06/18/2023 Clinical Communication Division of Nephrology and Hypertension in [place], [place] [address] [place] [address] Randy Sanchez Jr., D.O. 05/25/2023 1:30 PM BUHR MILL OPERATOR External Outreach Division of Nephrology and Hypertension in [place], [place] [address] [place] [phone] Randy Sanchez Jr., D.O. Hypertension And Chronic Kidney Disease Stage 1 (Primary Dx); Diabetes Mellitus Type 2 (HCC); Urolithiasis; Hyperlipidemia Mixed; Persistent Depressive Disorder 05/10/2023 1:00 PM BUHR MILL OPERATOR External Outreach Division of Nephrology and Hypertension in [place], [place] [address] [place] [address] Randy Sanchez Jr., D.O. Proteinuria (Primary Dx); Diabetes Mellitus Type 2 (HCC); Urolithiasis; Hyperlipidemia Mixed; Persistent Depressive Disorder from Last 3 Months Allergies Active Allergy Reactions Criticality Noted Date Comments Amlodipine GI intolerance 05/25/2023 Carvedilol Neurotoxicity 06/18/2023 He describes feeling out of control, anxious, unable to sleep Chlorthalidone Other (see comments) 07/19/2023 Lightheadedness and vomiting. Lisinopril Angioedema with othe r systemic symptoms especially skin reaction High 05/25/2023 Metformin Renal Failure High 05/25/2023 Sulfa (Sulfonamide Antibiotics) Rash 05/25/2023 Medications Medication Sig Dispensed Refills Start Date End Date Status albuterol 90 mcg/actuation inhaler Inhale 1-2 puffs. Active rosuvastatin (CRESTOR) 10 mg tablet Take 1 tablet (10 mg total) by mouth daily. 05/10/2023 Active glimepiride (AMARYL) 4 mg tablet Take 1 tablet (4 mg total) by mouth daily with breakfast. 05/10/2023 Active citalopram (CeleXA) 40 mg tablet Take 1 tablet (40 mg total) by mouth daily. 05/10/2023 Active chlorthalidone (HYGROTON) 25 mg tablet Take 0.5 tablets (12.5 mg total) by mouth daily. 45 tablet 3 06/18/2023 Active Additional Information Patient not taking.Reported on 07/19/2023 ondansetron ODT (ZOFRAN-ODT) 4 mg disintegrating tablet Dissolve 1 tablet (4 mg total) in the mouth every 8 (eight) hours as needed for nausea or vomiting. 20 tablet 07/22/2023 Active ondansetron ODT (ZOFRAN-ODT) 4 mg disintegrating tablet Dissolve 1 tablet (4 mg total) in the mouth every 8 (eight) hours as needed for nausea or vomiting. 20 tablet 06/18/2023 Discontinue d(Reorder) Active Problems Problem Noted Date Diagnosed Date Hypertension And Chronic Kidney Disease Stage 1 05/25/2023 Proteinuria 05/10/2023 Urolithiasis 05/10/2023 Diabetes Mellitus Type 2 05/10/2023 Hyperlipidemia Mixed 05/10/2023 Persistent Depressive Disorder 05/10/2023 Mental Disorder Unspecified 11/06/2019 Social History Tobacco Use Types Packs/Day Years Used Date Smoking Tobacco: Never Assessed Nutrition Answer Date Recorded Nutrition: EVOO Fat Source Unknown 05/07 Nutrition: Servings of Fruits/Vegetables per Day Not on file 05/07/2023 Dental Answer Date Recorded Dental: Regular Dentist Unknown 05/07/19 Sex and Gender Information Value Date Recorded Sex Assigned at Not on file Gender Identity Not on file Sexual Orientation Not on file Last Filed Vital Signs Vital Sign Reading Time Taken Comments Blood Pressure 162/98 05/25/2023 1:40 PM BUHR MILL OPERATOR Pulse 116 05/25/2023 1:40 PM BUHR MILL OPERATOR Temperature - - Respiratory Rate - - Oxygen Saturation - - Inhaled Oxygen Concentration - - Weight 103 kg (226 lb 6.6 oz) 05/25/2023 1:40 PM BUHR MILL OPERATOR Height 180.3 cm (5' 10.98) 05/25/2023 1:[address] Body Mass Index 31.59 05/25/2023 1:40 PM BUHR MILL OPERATOR Plan of Treatment Not on file Procedures Procedure Name Priority Date/Time Associated Diagnosis Comments EXTI LIPID PANEL, S Routine 11/07/2019 7 :37 AM CDT EXTI SODIUM, S/P Routine 11/06/2019 5:29 PM CDT EXTI COMPREHENSIVE METABOLIC PANEL, S/P Routine 11/06/2019 12:19 PM CDT from Last 3 Months or Most Recently Relevant to Health Maintenance
--- OUTSIDE RECORDS SUMMARY | 2023-07-29 17:04 | XMS_ITS | Encounter Summary ---
Author Name Unknown Organization [facility] Address [address] [place] [address] Care Team Providers Care Project Estimator Name Role Phone Unavailable Primary Care Provider Unavailabl e Encounter Details Date Type Department Care Team (Late st Contact Info) Description 06/18/2023 Documentation Division of Nephrology and Hypertension in [place], [place] [address] [place] [phone] Randy Sanchez Jr., D.O. [address] [place] [address] Social History Tobacco Use Types Packs/Day Years Used Date Smoking Tobacco: Never Assessed Nutrition Answer Date Recorded Nutrition: EVOO Fat Source Unknown 05/07 Nutrition: Servings of Fruits/Vegetables per Day Not on file 05/07/2023 Dental Answer Date Recorded Dental: Regular Dentist Unknown 05/07/19 24 Sex and Gender Information Value Date Recorded Sex Assigned at Not on file Gender Identity Not on file Sexual Orientation Not on file documented as of this encounter Progress Notes * Randy Sanchez Jr., D.O. - 06/18/2023 2:19 PM CST Care coordination: Received message to contact him immediately, I called him. He mentions that after starting carvedilol 3.125 mg orally twice daily he is experiencing hot flashes, night sweats, nausea, and poor sleep along with some anxiety like reactions. I have asked him to stop the agent today. We will attempt to use chlorthalidone 25 mg, 1/2 tablet orally daily to achieve some blood pressuremanagement. He has had unusual and documented reactions to multiple medications. Additionally is having some longer-term issues with nausea. I prescribed some Zofran for him to usesparingly, warning him of fatigue, and slowed mental processes advising him not to be going on longdrives or performing activities which require mental acuity. IDENTIAL HELICOPTER CREW CHIEF documented in this encounter Plan of Treatment Not on file documented as of this encounter Visit Diagnoses Not on filedocumented in this encounter
--- OUTSIDE RECORDS SUMMARY | 2023-07-29 17:04 | XMS_ITS | Encounter Summary ---
Author Name Unknown Organization [facility] Address [address] [place] [address] Care Team Providers Care Furrier Apprentice Name Role Phone Unavailable Primary Care Provider Unavailabl e Reason for Visit * Reason Onset Date Comments chlorthalidone side effects 07/19/2023 Encounter Details Date Type Department Care Team (Latest Contact Info) Description 07/19/2023 Clinical Communication Division of Nephrology and Hypertension in [place], [place] [address] [place] [address] Randy Sanchez Jr., D.O. [address] [place] [address] chlorthalidone side effects Social History Tobacco Use Types Packs/Day Years [...] Notes * Randy Sanchez Jr., D.O. - 07/22/2023 11:34 AM CDT Notification of side effects once again: The patient reports that he was nauseated vomited, and was lightheaded with starting 12.5 mg of hydrochlorothiazide. He wished refills for Zofran. I have instructed that he monitor his blood pressure on a daily basis and get back to us with his blood pressures, he is poorly tolerated now numerous different medications, and the risk versus benefit becomes more challenging in the circumstances With attempting other pharmacotherapy. We will needto determine this risk with his blood pressures. documented in this encounter Miscellaneous Notes * Telephone Encounter - Yolanda Galeas M.S.N., R.N. - 07/23/2023 2:55 PM CDT SUBJECTIVE CHIEF COMPLAINT / REASON FOR CALL chlorthalidone side effects Information Discussed Per Dr. Sanchez following patient report of nausea and vomiting and lightheadedness with 12.5 mg of hydrochlorothiazide. Patient reports that today if the first day he is feeling better following the discontinuation of hydrochlorothiazide. Dr. Sanchez would like patient to monitor his blood pressure on a daily basis and get back to us with his blood pressures. Patient was informed that most blood pressure should be under 130/80 thus if he notices higher blood pressures than 130/80 to call. Proper technique to obtain a blood pressurewas reviewed with patient. Dr. Sanchez will make recommendation with regard to attempting other pharmacotherapy. PLAN Disposition/Recommendation: Call Dr. Sanchez's office with home readings in 1-2 weeks Information/Education: patient/caller able to teach back Caller agreeable to plan of care: yes The following references were used: nursing clinical judgement and provider Dr. Sanchez * Telephone Encounter - Yolanda Galeas M.S.N., R.N. - 07/19/2023 1:12 PM CDT SUBJECTIVE CHIEF COMPLAINT / REASON FOR CALL chlorthalidone side effects ASSESSMENT Patient reports that immediately after starting chlorthalidone he experienced lightheadedness and this hindered his ability to do tasks such as yard work due to the dizziness. July 07, 2023 patient reported that he experienced vomiting and dry heaving in the mornings. Patient has been using Zofranand requests a refill on this medication. He reports that he has been able to eat and drink to stayon top of hydration. Blood pressure was 155/77. Patient asks that he be given a few days to allow chlorthalidone to leave his system prior to starting something new. Patient reports that he stopped chlorthalidone on 07/18/23 and he still has dizziness, has not vomited but is belching. PLAN Patient was informed to take note that Zofran can cause fatigue and he should take precaution when taking this medication and be careful at work or long drives. Disposition/Recommendation: notified provider and awaiting recommendations. Information/Education: patient/caller able to teach back. Caller agreeable to plan of care: yes. The following references were used: nursing clinical judgement. * Telephone Encounter - Annmarie Jaramillo - 07/19/2023 12:12 PM CDT Caller is: patient Preferred Communication Method: [phone] (home) Reason for call: Mr. Villagomez is noting side effects from the chlorthalidone 25 mg 1/2 tablet daily with lightheadednessand vomiting up to three times daily. He stopped the chlorthalidone yesterday (Wednesday). Would appreciate a call back as to next steps. Thank you. documented in this encounter Plan of Treatment Not on file documented as of this encounter Visit Diagnoses Not on filedocumented in this encounter
--- OUTSIDE RECORDS SUMMARY | 2023-07-29 17:04 | XMS_ITS | Encounter Summary ---
Author Name Unknown Organization [facility] Address [address] [place] [address] Care Team Providers Care Channel Lip Stiffener Insoles Name Role Phone Unavailable Primary Care Provider Unavailabl e Encounter Details Date Type Department Care Team (Late st Contact Info) Description 06/18/2023 Orders Only Division of Nephrology and Hypertension in [place], [place] [address] [place] [address] Randy Sanchez Jr., D.O. [address] [place] [address] Social History Tobacco Use Types Packs/Day Years [...]
--- OUTSIDE RECORDS SUMMARY | 2023-07-29 17:04 | XMS_ITS | Encounter Summary ---
Author Name Unknown Organization [facility] Address [address] [place] [address] Care Team Providers Care Textile Finisher Name Role Phone Unavailable Primary Care Provider Unavailabl e Encounter Details Date Type Department Care Team (Late st Contact Info) Description 06/18/2023 Clinical Communication Division of Nephrology and Hypertension in [place], [place] [address] [place] [address] Randy Sanchez Jr., D.O. [address] [place] [address] Social History Tobacco Use Types Packs/Day Years [...]
--- OUTSIDE RECORDS SUMMARY | 2023-07-29 17:04 | XMS_ITS | Clinical Summary ---
Author Name Unknown Organization [facility] Address [address] [place] [address] Care Team Providers Care Mophead Sewer Name Role Phone Unavailable Primary Care Provider Unavailabl e Source Comments Patient records contain information from all sites at [facility]. For routine questions regarding patient records, call [phone] during business hours, M-F 8:00 AM - 5:00 PM Central Time. Record requests for emergency care only can be directed to [phone] at any time.[facility] Allergies Active Allergy Reactions Criticality Noted Date [...] Depressive Disorder 05/10/2023 Mental Disorder Unspecified 11/06/2019 Encounters Date Type Department Care Team Description 07/19/2023 Clinical Communication Division of Nephrology and Hypertension in [place], [place] [address] [place] [address] Randy Sanchez Jr., D.O. chlorthalidone side effects 06/18/2023 Documentation Division of Nephrology and Hypertension in [place], [place] [address] [place] [address] Randy Sanchez Jr., D.O. 06/18/2023 Orders Only Division of Nephrology and Hypertension in [place], [place] [address] [place] [phone] Randy Sanchez Jr., D.O. 06/18/2023 Clinical Communication Division of Nephrology and Hypertension in [place], [place] [address] [place] [phone] Randy Sanchez Jr. D.O. 05/25/2023 1:30 PM INSECTICIDE EXPERT External Outreach Division of Nephrology and Hypertension in [place], [place] [address] [place] [phone] Randy Sanchez Jr. D.O. Hypertension And Chronic Kidney Disease Stage 1 (Primary Dx); Diabetes Mellitus Type 2 (HCC); Urolithiasis; Hyperlipidemia Mixed; Persistent Depressive Disorder 05/10/2023 1:00 PM INSECTICIDE EXPERT External Outreach Division of Nephrology and Hypertension in [place], [place] [address] [place] [address] Randy Sanchez Jr., D.O. Proteinuria (Primary Dx); Diabetes Mellitus Type 2 (HCC); Urolithiasis; Hyperlipidemia Mixed; Persistent Depressive Disorder from Last 3 Months Social History Tobacco [...] Comments Blood Pressure 162/98 05/25/2023 1:40 PM INSECTICIDE EXPERT Pulse 116 05/25/2023 1:40 PM INSECTICIDE EXPERT Temperature - - Respiratory Rate - - Oxygen Saturation - - Inhaled Oxygen Concentration - - Weight 103 kg (226 lb 6.6 oz) 05/25/2023 1:40 PM INSECTICIDE EXPERT Height 180.3 cm (5' 10.98) 05/25/2023 1:[address] Body Mass Index 31.59 05/25/2023 1:40 PM INSECTICIDE EXPERT Plan of Treatment Health Maintenance Due Date Last Done Comments CT Colonography 1967 Colonoscopy 1967 Depression Monitoring (PHQ-9) 1967 Diabetic Office Visit with F oot Exam 1967 Dilated Eye Exam 1967 FIT 1967 HIV Screening 1967 Hemoglobin A1C 1967 Hepatitis C Screening 1967 Urine Albumin 1967 Hepatitis B Vaccines (1 of 3 - 19+ 3-dose series) 10/29/1986 Pneumococcal vaccine (0-64 y ears) (2 of 2 - PCV) 12/20/2016 12/21/2015, 07/23/2009 Creatinine Level (Kidney Fun ction Test) 11/05/2020 11/06/2019 Potassium Level 11/05/2020 11/06/2019 Sodium Level 11/05/2020 11/06/2019, 11/06/2019 DTaP,Tdap,and Td Vaccines (4 - Td or Tdap) 01/12/2023 01/12/2013, 01/07/2005, 12/17/1986 Office Visit for Blood Press ure Check / Re-check 08/23/2023 05/25/2023 Lipid (Cholesterol) Screening 11/06/2024 11/07/2019 Cologuard 05/16/2026 05/16/2023 Colorectal Cancer Screening 05/16/2026 Zoster Vaccines Completed 08/25/2018, 04/14, 04/24/2018 COVID-19 Vaccine Completed 03/02/2023, , 08/03/2021, Additional history exists Influenza Vaccine Completed 03/02/2023, , 01/21/2021, Additional history exists Procedures Procedure Name Priority Date/Time Associated Diagnosis Comments EXTI LIPID PANEL, S Routine 11/07/2019 7 :37 AM CDT EXTI SODIUM, S/P Routine 11/06/2019 5:29 PM CDT EXTI COMPREHENSIVE METABOLIC PANEL, S/P Routine 11/06/2019 12:19 PM CDT from Last 3 Months or Most Recently Relevant to Health Maintenance
--- OUTSIDE RECORDS SUMMARY | 2023-07-29 17:05 | XMS_ITS | Encounter Summary ---
Author Name Unknown Organization [facility] Address Count includes the [facility] [place] [address] Care Team Providers Care Senior Software Qa Analyst Name Role Phone Jorge Newton MD Primary Care Provider [phone] Encounter Details Date Type Department Care Team (Latest Contact Info) Description 04/27/2023 Medical Correspondence [facility] Info Mgmt Srs [address] [place] [address] Scan, Non-Provider NEPHROLOGY REFERRAL [facility] Social History Tobacco Use Types Packs/Day Years Used Date Smoking Tobacco: Never Assessed Adolescent Education Answer Date Record ed Getting School Help Needed Not on file 04/28 Sex and Gender Information Value Date Recorded Sex Assigned at Not on file Gender Identity Not on file Sexual Orientation Not on file documented as of this encounter Plan of Treatment Not on file documented as of this encounter Visit Diagnoses Not on filedocumented in this encounter Care Teams Senior Software Qa Analyst Relationship Specialty Start Date End Date Jorge Newton MD PCP - General Family Practice 11/06/19 documented as of this encounter
--- OUTSIDE RECORDS SUMMARY | 2023-07-29 17:05 | XMS_ITS | Encounter Summary ---
Author Name Unknown Organization [facility] Address [address] [place] [address] Care Team Providers Care Visiting Nurse Name Role Phone Unavailable Primary Care Provider Unavailabl e Reason for Visit * Appointment Request (Routine) - Closed Specialty Diagnoses / Procedures Referred By Contmedhat t Referred To Contact Nephrology and Hypertension Referral ID Status Reason Start Date Expiration Date Visits Re quested Visits Authorized [id number] Closed 05/14/2023 05/13/2024 1 1 Encounter Details Date Type Department Care Team (Latest Contact Info) Description 05/25/2023 1:30 PM EVENT MARKETING INTERN External Outreach Division of Nephrology and Hypertension in [place], [place] [address] [place] [address] Randy Sanchez Jr., D.O. [address] [place] [address] Hypertension And Chronic Kidney Disease Stage 1 (Primary Dx); Diabetes Mellitus Type 2 (HCC); Urolithiasis; Hyperlipidemia Mixed; Persistent Depressive Disorder Social History Tobacco Use Types Packs/Day Years [...] on file documented as of this encounter Last Filed Vital Signs Vital Sign Reading Time Taken Comments Blood Pressure 162/98 05/25/2023 1:40 PM EVENT MARKETING INTERN Pulse 116 05/25/2023 1:40 PM EVENT MARKETING INTERN Temperature - - Respiratory Rate - - Oxygen Saturation - - Inhaled Oxygen Concentration - - Weight 103 kg (226 lb 6.6 oz) 05/25/2023 1:40 PM EVENT MARKETING INTERN Height 180.3 cm (5' 10.98) 05/25/2023 1:40 PM Marlyn DICKSON Body Mass Index 31.59 05/25/2023 1:40 PM EVENT MARKETING INTERN documented in this encounter Progress Notes * Randy Sanchez Jr., D.O. - 05/25/2023 1:30 PM CST Referring Provider: DR Newton SUBJECTIVE REASON FOR VISIT [facility] Follow-up regards testing, diabetes mellitus, hypertension, proteinuria HISTORY OF PRESENT ILLNESS Mr. Villagomez is a 57 y.o. male who presents with the above matters. We discussed his current situation, he unfortunately developed tremors, palpitations, nausea with the 10 mg per day of amlodipine. This was prescribed prior to my last visit with him in over the pastweek he has had a substantial decline in his ability to tolerate this medication, in association with dramatically elevated blood pressures!. Brought his home cuff in in fact, as he was registering blood pressures in the 170s to 190s at home systolic, was suspicious his cuff was broken. We correlated our blood pressures with his machine today, indeed his blood pressures are quite elevated. We will be stopping this agent. Clarified that he has had angioedema with lisinopril with acute kidney injury, and with the metformin. I note that his renal ultrasound did not show renal artery disease. He has been very careful with the sodium, has not started any new medications. I note that he is on the citalopram, which can have an interaction with amlodipine. Note that his proteinuria has increased slightly from the original value but declined from the March value with a microalbumin to creatinine ratio of 650 milligrams/gram. This is likely reflectingsome of the elevated blood pressure. We discussed options with respect to his blood pressure management. Additionally reviewed his 24 hour urine studies, which initially were done on 4900 cc of urine. Subsequent recheck was 2600 cc of urine, and excellent profile was appreciated other than low urinary citrate. Feels well otherwise, but is struggling with the tremor, some palpitations, and the nausea currently. History reviewed. No pertinent past medical history. Current Outpatient Medications: albuterol 90 mcg/actuation inhaler, Inhale 1-2 puffs., Disp: , Rfl: carvediloL (COREG) 3.125 mg tablet, Take 1 tablet (3.125 mg total) by mouth 2 (two) times a day with meals., Disp: 180 tablet, Rfl: 3 citalopram (CeleXA) 40 mg tablet, Take 1 tablet (40 mg total) by mouth daily., Disp: , Rfl: glimepiride (AMARYL) 4 mg tablet, Take 1 tablet (4 mg total) by mouth daily with breakfast., Disp: , Rfl: rosuvastatin (CRESTOR) 10 mg tablet, Take 1 tablet (10 mg total) by mouth daily., Disp: , Rfl: REVIEW OF SYSTEMS All other systems reviewed and are negative. OBJECTIVE BP (!) 162/98 Pulse (!) 116 Ht 180.3 cm Wt 103 kg BMI 31.59 kg/m?? PHYSICAL EXAMINATION General: Awake alert oriented HEENT: KELLEN, EOMI, Mucous membranes moist, no oral lesions Neck: No Masses, No Bruits Lungs: Clear to ascultation Heart: Regular Rate and Rhythm, No ectopy Murmurs or rubs Abdomen: Soft, Non-tender Extremities: No cyanosis, No clubbing: No edema Neuro: Cranial Nerves intact, Gait is normal, strength grossly normal Skin: no suspicious lesions identified Psychiatric: Normal affect DIAGNOSTICS Note creatinine level normal, DENICE 2R negative, serum protein electrophoresis negative. Urine protein electrophoresis negative. ASSESSMENT / PLAN #1 Hypertension And Chronic Kidney Disease Stage 1 He has proteinuria, and nephrosclerosis with diabetes mellitus and hypertension. I am quite concerned about his blood pressure. One possibility is that the amlodipine and citalopram interacted causing his current set of symptoms. We will stop the amlodipine. Going forward 1. Stop amlodipine 2. Begin carvedilol 3.125 mg orally twice daily. We are stuck in that he apparently had angioedema with lisinopril and therefore I do not believe we should move ahead with an ARB agent. 3. Low-sodium diet-as he is doing 4. Stay physically active with a goal towards weight loss 5. Could consider GLP-1 agonist or an SG LT 2 inhibitor for both blood pressure and glycemic control going forward. 6. We will likely need to increase his carvedilol, I have given him my office phone number and we certainly could safely increase this up to a goal dose of 25 mg twice daily. 7. I will see him back in clinic scheduled in 4 months but sooner if necessary. #2 Diabetes Mellitus Type 2 (HCC) Excellent glycemic control I congratulated him. #3 Urolithiasis We discussed adding Urocit-K to his regimen versus doing this more organic likely, by him adding concentrated lemon to his lemon water and sticking with a gal a day of urine dilution. In addition 1. Low-sodium diet less than 2000 mg sodium per day 2. Low oxalate diet, diet low in nuts, tea, chocolate, spinach 3. No calcium or vitamin-D supplements 4. Careful with high-protein diets 5. Avoid high dose vitamin-C 6. Repeat supersaturation study in 6 months. #4 Hyperlipidemia Mixed Triglycerides were above goal but otherwise acceptable #5 Persistent Depressive Disorder He should continue on citalopram, and I discussed that under no circumstances should she abruptly stopped this agent. Discussed with the should bring this up with his primary care team or with me so that we could carefully taper off. Total time: 35 minute Counseling Time: 20 minutes Randy Sanchez Jr., D.O. T MARKETING INTERN documented in this encounter Plan of Treatment Not on file documented as of this encounter Visit Diagnoses Diagnosis Hypertension And Chronic Kidney Disease Stage 1- Primary Diabetes Mellitus Type 2 (HCC) Urolithiasis Hyperlipidemia Mixed Persistent Depressive Disorder documented in this encounter
--- OUTSIDE RECORDS SUMMARY | 2023-07-29 17:05 | XMS_ITS | Clinical Summary ---
Author Name Unknown Organization [facility] Address [address] [place] [address] Care Team Providers Care Farm Specialist Name Role Phone Jorge Newton MD Primary Care Provider [phone] Allergies Active Allergy Reactions Criticality Noted Date Comments Hydrocodone Anaphylaxis High 11/06/2019 Sulfa Antibiotics Anaphylaxis High 11/06/2019 Medications Medication Sig Dispensed Refills Start Date End Date Status albuterol (PROAIR HFA/PROVENTIL HFA/VENTOLIN HFA) 108 (90 Base) MCG/ACT inhaler Inhale 1-2 puffs into the lungs every 4 hours as needed for shortness of breath / dyspnea or wheezing Active fexofenadine (CHHAYA) 180 MG tablet Take 180 mg by mouth daily as needed for allergies Active glipiZIDE (GLUCOTROL XL) 5 MG 24 hr tablet Take 5 mg by mouth daily Active amLODIPine (NORVASC) 10 MG tablet Take 10 mg by mouth daily Active montelukast (SINGULAIR) 10 MG tablet Take 10 mg by mouth At Bedtime Active fluticasone-salmeter ol (ADVAIR) 250-50 MCG/DOSE inhaler Inhale 1 puff into the lungs 2 times daily as needed (shortness of breath) Active escitalopram (LEXAPRO) 20 MG tabletIndications:Ma maxwell [...] Procedure Name Priority Date/Time Associated Diagnosis Comments GLUCOSE BY METER Routine 11/10/2019 8:20 AM CDT Major depressive disorder, recurrent episode, in partial remission (H) LIPID PROFILE Routine 11/07/2019 7:37 AM CDT from Last 3 Months or Most Recently Relevant to Health Maintenance Results * (ABNORMAL) Glucose by meter (11/10/2019 8:20 AM CDT) Glucose 145(H) 70 - 99 mg/dL 11/10/2019 8:26 AM CDT POINT OF CARE TEST, GLUCOSE 11/10/2019 8:20 AM CDT 11/10/2019 8:26 AM CDT Victoriano Morales MD LAB - BEAKER POC T POINT OF CARE TEST, GLUCOSE * Lipid panel (11/07/2019 7:37 AM CDT) Cholesterol 163 <200 mg/dL 11/07/2019 8:21 AM CDT [facility] Triglycerides 86 <150 mg/dL 11/07/2019 8:21 AM CDT [facility] HDL Cholesterol 91 >39 mg/dL 0 8:24 AM CDT [facility] LDL Cholesterol Calculated 55 <100 mg/dL 11/07/2019 8:24 AM CDT [facility] Comment:Desirable: <100 mg/d l Non HDL Cholesterol 72 <130 mg/dL 11/07/2019 8:24 AM CDT [facility] Blood specimen (specimen) 11/07/2019 7:37 AM CDT 11/07/2019 7:38 AM CDT Paris Mast MD LAB - BLOOD PHYLICIA BRWEER Performing Organization Address City/State/[facility] Co de Phone Number [facility] [address] [place] [address] from Last 3 Months or Most Recently Relevant to Health Maintenance Advance Directives For more information, please contact: [phone] * Full Code (Latest Code Status on File) Date Activated Date Inactivated Comments 11/06/2019 8:29 PM 11/10/2019 2:42 PM All basic an d advanced life-sustaining interventions are performed as appropriate Question Answer Comments Code status determined by: Discussion with meagan nt/ legal decision maker Care Teams Farm Specialist Relationship Specialty Start Date End Date Jorge Newton MD PCP - General Family Practice 11/06/19
--- OUTSIDE RECORDS SUMMARY | 2023-07-29 17:05 | XMS_ITS | Encounter Summary ---
Author Name Unknown Organization [facility] Address [address] [place] [address]. [place] [address] Care Team Providers Care Funding Specialist Name Role Phone Jorge Newton MD Primary Care Provider [phone] Reason for Referral * Consultation (Routine) - Pending Review Specialty Diagnoses / Procedures Referred By Yann diaz Referred To Contact Nephrology Diagnoses Proteinuria, unspecified Jorge Newton MD [facility] [address] [address] Referral ID Status Reason Start Date Expiration Date V isits Requested Visits Authorized [id number] Pending Review 04/28/2023 04/27/2024 1 1 Question Answer Reason for Referral: Proteinuria Scheduling Instructions: [facility] will call you to coordinate your care as prescribed by the provider. If you don? t hear from a underwriting sales representative within 2 business days, please call [phone]. Comments Referred by Jorge Newton [facility] [address] [facility] [place] [address] (P)[phone] (F) N/A Please be aware that coverage of these services is subject to the terms and limitations of your health insurance plan. Call member services at your health plan with any benefit or coverage questions. [facility] will call you to coordinate your care as prescribed by the provider. If you don? t hear from a underwriting sales representative within 2 business days, please call [phone]. [facility] Encounter Details Date Type Department Care Team (Latest Contact Info) Description 04/28/2023 Transcribe Orders GENERIC EXTERNAL DATA DEPARTMENT Jorge Newton MD [facility] [address] [address] Proteinuria, unspecified (Primary Dx) Social History Tobacco [...] Associated Diagnoses Orde r Schedule Adult Nephrology Quality Control Inspector Referral Referral Routine Proteinuria, unspecified Expected: 04/28/2023 (Approximate), Expires: 04/28/2024 documented as of this encounter Visit Diagnoses Diagnosis Proteinuria, unspecified- Primary documented in this encounter Care Teams Funding Specialist Relationship Specialty Start Date End Date Jorge Newton MD PCP - General Family Practice 11/06/19 documented as of this encounter
--- OUTSIDE RECORDS SUMMARY | 2023-07-29 17:05 | XMS_ITS | Referral Summary ---
Author Name Unknown Organization [facility] Address [address] [place] [address] Care Team Providers Care Sulfate Drier Machine Operator Name Role Phone Jorge Newton MD Primary Care Provider [phone] Allergies Active Allergy Reactions Criticality Noted Date [...] 163 <200 mg/dL 11/07/2019 8:21 AM CDT [facility] Triglycerides 86 <150 mg/dL 11/07/2019 8:21 AM CDT [facility] HDL Cholesterol 91 >39 mg/dL 0 8:24 AM CDT [facility] LDL Cholesterol Calculated 55 <100 mg/dL 11/07/2019 8:24 AM CDT [facility] Comment:Desirable: <100 mg/d l Non HDL Cholesterol 72 <130 mg/dL 11/07/2019 8:24 AM CDT [facility] Blood specimen (specimen) 11/07/2019 7:37 AM CDT 11/07/2019 7:38 AM CDT Paris Mast MD LAB - BLOOD PHYLICIA BREWER Performing Organization Address City/State/[facility] Co de Phone Number [facility] [address] [place] [address] from Last 3 Months or Most Recently Relevant to Health Maintenance Advance Directives For more information, please contact: [phone] * Full Code (Latest Code Status on File) Date Activated Date Inactivated Comments 11/06/2019 8:29 PM 11/10/2019 2:42 PM All basic an d advanced life-sustaining interventions are performed as appropriate Question Answer Comments Code status determined by: Discussion with meagan nt/ legal decision maker Care Teams Sulfate Drier Machine Operator Relationship Specialty Start Date End Date Jorge Newton MD PCP - General Family Practice 11/06/19
--- OUTSIDE RECORDS SUMMARY | 2023-07-29 17:05 | XMS_ITS | Encounter Summary ---
Author Name Unknown Organization [facility] Address [address] [place] [address] Care Team Providers Care Windows Architect Name Role Phone Unavailable Primary Care Provider Unavailabl e Reason for Visit * Appointment Request (Routine) - Closed Specialty Diagnoses / Procedures Referred By Contmedhat t Referred To Contact Nephrology and Hypertension Jorge Newton M.D. [address], [place] [address] Referral ID Status Reason Start Date Expiration Date Visits Re quested Visits Authorized [id number] Closed 05/07/2023 05/06/2024 1 1 Encounter Details Date Type Department Care Team (Latest Contact Info) Description 05/10/2023 1:00 PM SENIOR WINDOWS SYSTEMS ENGINEER External Outreach Division of Nephrology and Hypertension in [place], [place] [address] [place] [address] Randy Sanchez Jr., D.O. [address] [place] [address] Proteinuria (Primary Dx); Diabetes Mellitus Type 2 [...] Sign Reading Time Taken Comments Blood Pressure 152/70 05/10/2023 1:17 PM SENIOR WINDOWS SYSTEMS ENGINEER Pulse 105 05/10/2023 1:17 PM SENIOR WINDOWS SYSTEMS ENGINEER Temperature - - Respiratory Rate - - Oxygen Saturation - - Inhaled Oxygen Concentration - - Weight 105 kg (232 lb 2.3 oz) 05/10/2023 1:17 PM SENIOR WINDOWS SYSTEMS ENGINEER Height 180.3 cm (5' 10.98) 05/10/2023 1:17 PM Marlyn DICKSON Body Mass Index 32.39 05/10/2023 1:17 PM SENIOR WINDOWS SYSTEMS ENGINEER documented in this encounter Progress Notes * Randy Sanchez Jr., D.O. - 05/10/2023 1:00 PM CST Referring Provider: DR Jorge Newton SUBJECTIVE REASON FOR VISIT [facility] Proteinuria, metabolically and surgically indeterminate urolithiasis, hypertension HISTORY OF PRESENT ILLNESS Mr. Villagomez is a 57 y.o. male who presents with documentation of 2.2 g in 24 hours of proteinuria, with a microalbumin to creatinine ratio 1500 milligrams/gram on the background of diabetes mellitus type 2, hypertension, and depression/anxiety. He was 1st discovered to have proteinuria with a microalbumin to creatinine ratio of 190 milligrams/gram in 2021. However, he notes that approximately 5-6 months ago he suddenly noted his urine to become foamy. This is not associated with urine color changes otherwise, and no connective tissue typesymptomatology or constitutional illnesses occurred during this time frame. He had not started any new medications, no travel. Appreciate that he previously had a acute kidney injury documented 5 years ago associated with lisinopril use, and he is abandoned its use since. Note that his blood pressures been above goals, with systolic pressures in the 150s to 170s recently, and he has been initiated on amlodipine approximately a week ago. He does not use NSAIDs. There is no familial history of renal diseases or disorders, other than hissister has urolithiasis-see below. He has not had active urinary sediment noted, and I appreciate that he has normal-appearing kidneys documented during his episodes of stone disease. Evaluation of his renal arteries has yet to be performed. He does not use any extra sodium, does not have sleep disordered breathing clinically, and sleeps well other than nocturia. His diabetes has been well controlled, with hemoglobin A1c levels between 6.4 and 7.2% over the past year. He has had no hypoglycemic events. Currently on glimepiride. He does not have neuropathic issues nor any retinopathy. With respect to his urolithiasis, he has had at least 5 substantial episodes, 1 of which required extracorporeal shockwave lithotripsy in 2012. The stones have always been calcium oxalate. He followsa very strict urine dilution efforts, and I note his 24 hour urine protein quantification study wasdone on 4900 cc of urine!. He has a diet high in nuts, but otherwise not a dramatically high oxalate diet. Does not use any calcium supplements or vitamin-D Past medical history: 1. Diabetes mellitus type 2 2. Hypertension 3. Hyperlipidemia 4. Anxiety disorder 5. Urolithiasis 6. Prior appendectomy Current Outpatient Medications: albuterol 90 mcg/actuation inhaler, Inhale 1-2 puffs., Disp: , Rfl: amLODIPine (NORVASC) 10 mg tablet, Take 5 mg by mouth daily., Disp: , Rfl: citalopram (CeleXA) 40 mg tablet, Take 1 [...] systems reviewed and are negative. OBJECTIVE BP 152/70 Pulse 105 Ht 180.3 cm Wt 105 kg BMI 32.39 kg/m?? PHYSICAL EXAMINATION General: Awake alert oriented [...] suspicious lesions identified Psychiatric: Normal affect DIAGNOSTICS No 24 hour urine protein excretion was 2200 mg, microalbumin to creatinine ratio 1500 milligrams/gram, normal serum creatinine 0.9 mg/dL, normal CBC normal liver function testing normal chemistries normal calcium. ASSESSMENT / PLAN #1 Proteinuria While sub nephrotic range this is substantial. It is tempting to attribute this to his diabetes andpotentially hypertension, and while these are contributing factors, I am concerned there could be an other underlying factor, such as membranous, focal sclerosis, or other primary glomerular issues. Note that he does not have a nephritic picture, with absent hematuria. Going forward: From a diagnostic perspective: 1. Check serum paraproteins 2. Repeat urinalysis 3. Check renal ultrasound with Dopplers 4. Check serum DENICE 2R 5. Check serum light chains 6. I have asked him to purchase a home blood pressure cuff such that we can monitor his blood pressure towards the goals as below. From a therapeutic perspective: 1. Goal blood pressure less than 140 systolic, ultimate goal less than 130 systolic 2. Agree with amlodipine 5 mg orally daily for now, suspect we will need to augment his antihypertensive regimen 3. Low-sodium diet less than 3000 mg sodium per day 4. Continue on urine dilution efforts, as per prior 5. No NSAIDs or Armstrong 2 inhibitors 6. He should continue on a usual protein diet, would stay below 10 oz of animal protein per day 7. Goal glycosylated hemoglobin less than 7.5% #2 Diabetes Mellitus Type 2 (HCC) Seems reasonably controlled with a hemoglobin A1c between 6.4 and 7.2%. Might benefit from an SG LT2 inhibitor eventually, but we need to get a better handle on the diagnostic issues. Particularly if he suffered acute kidney injury with lisinopril, the vasomotor effects of the SG LT 2 inhibitors could be dangerous. Whether he would benefit from a GLP 1 agonist is to be determined. This could be part of goal-directed therapy for him eventually. The glimepiride is quite long-acting, we might need to consider other agents as mentioned above. Note that he did not do well with metformin. #3 Urolithiasis This appears to be metabolically and surgically indeterminate. He has doing an excellent job with urine dilution, we will move ahead with supersaturation study. This will help us determine what potential risk factors could be mitigated to prevent further stone formation. #4 Hyperlipidemia Mixed Seems well controlled on his current regimen reviewed his current lipid panel. He should continue on his rosuvastatin. #5 Persistent Depressive Disorder He does have an anxiety disorder, he is currently on citalopram and doing reasonably well with this Total time: 1 hour 10 minutes Counseling Time: 1 hour Randy Sanchez Jr., D.O. OR WINDOWS SYSTEMS ENGINEER documented in this encounter Plan of Treatment Not on file documented as of this encounter Visit Diagnoses Diagnosis Proteinuria- Primary Diabetes Mellitus Type 2 (HCC) Urolithiasis Hyperlipidemia Mixed Persistent Depressive Disorder documented in this encounter
--- OUTSIDE RECORDS SUMMARY | 2023-07-29 17:05 | XMS_ITS | Clinical Summary ---
Author Name Unknown Organization [facility] Address [place], [place] [address] Care Team Providers Care Ad Terminal Makeup Operator Name Role Phone Unavailable Primary Care Provider Unavailabl e Allergies Active Allergy Reactions Criticality Noted Date Comments Oxycodone-Acetaminophen Rash 04/20/2011 Sulfa (Sulfonamide Antibiotics) Anaphylaxis 11/2011 Hydrocodone-Acetaminophen Rash 04/20/2011 Medications Medication Sig Dispensed Refills Start Date End Date Status citalopram (CELEXA) 40 mg tablet Take 40 mg by mouth once daily. Active propranolol (INDERAL) 40 mg tablet Take 40 mg by mouth 2 times daily. Active metFORMIN (GLUCOPHAGE) 500 mg tablet Take 500 mg by mouth 2 times daily with meals. Active lisinopril (PRINIVIL; ZESTRIL) 40 mg tablet Take 40 mg by mouth once daily. Active simvastatin (ZOCOR) 40 mg tablet Take 40 mg by mouth at bedtime. Active acetaminophen-code ine, 300-30 mg, (TYLENOL #3) [...] Comments Blood Pressure 146/80 04/20/2011 3:00 PM WEBSPHERE PORTAL DEVELOPER Pulse 61 04/20/2011 3:00 PM WEBSPHERE PORTAL DEVELOPER Temperature 36 ??C (96.8 ??F) 04/20/2011 1:30 PM WEBSPHERE PORTAL DEVELOPER Respiratory Rate 16 04/20/2011 3:00 PM WEBSPHERE PORTAL DEVELOPER Oxygen Saturation 98% 04/20/2011 1:30 PM WEBSPHERE PORTAL DEVELOPER Inhaled Oxygen Concentration - - Weight 100.2 kg (220 lb 14.4 oz) 04/20/2011 9:07 AM WEBSPHERE PORTAL DEVELOPER Height 177.8 cm (5' 10) 04/20/2011 9:07 AM WEBSPHERE PORTAL DEVELOPER Body Mass Index 31.7 04/20/2011 9:07 AM WEBSPHERE PORTAL DEVELOPER Plan of Treatment Not on file Medical Devices Implanted Type Area Information And Data Architect Analyst Device Identifier Shelf Expiration Date Model / Serial / Lot Stent Contour [id number] - [id number] Implanted:Qty: 1 on 04/20/2011 at [facility] Left: Ureter [facility] Urology [id number] / / [id number] Advance Directives * Full Code (Latest Code Status on File) Date Activated Date Inactivated Comments 04/20/2011 8:28 AM 04/20/2011 6:30 PM
[2023-07-29] MEDS: 0.9 % SODIUM CHLORIDE 1000 ml 1,000 ML IV (17:13)
[2023-07-29 17:18] LABS: Basophils Absolute Auto 0.05 K/uL (0.00-0.30); Basophils Percent Auto 0.6 % (0.0-3.0); Eosinophils Absolute Auto 0.01 K/uL (0.00-0.50); Eosinophils Percent Auto 0.1 % (0.0-7.0); Hematocrit 42.1 % (37.0-53.0); Hemoglobin* 14.7 gm/dL (13.5-17.5); Immature Granulocytes Abs Auto 0.01 K/uL (0.00-0.30); Immature Granulocytes Pct Auto 0.1 %; Lymphocytes Absolute Auto 2.75 K/uL (0.90-2.90); Lymphocytes Percent Auto 32.1 % (20-44); Mean Corpuscular HGB Conc 35 gm/dL (32-36); Mean Corpuscular Hemoglobin 32 pg (26-34); Mean Corpuscular Volume 91 fL (80-100); Monocytes Percent Auto 6.1 % (0.0-11.0); Neutrophils Absolute Auto 5.24 K/uL (1.7-7.0); Platelet Count* 210 K/uL (140-440); RDW Coefficient of Variation % 13.3 % (11.5-15.5); Red Blood Count 4.61 m/uL (4.30-5.90); White Blood Count* 8.58 K/uL (4.50-11.00)
[2023-07-29 17:22] LABS: Slide Review Reflex No
[2023-07-29 17:29] LABS: Albumin* 4.1 g/dL (3.3-5.0); Chloride* 93 mmol/L (96-114)
[2023-07-29 17:30] LABS: Potassium* 4.1 mmol/L (3.6-5.1); Sodium* 129 mmol/L (135-149)
[2023-07-29 17:32] LABS: Alanine Aminotransferase* 160 U/L (4-50); Alkaline Phosphatase* 265 U/L (40-150); Anion Gap 7 mEq/L (7-15); Aspartate Amino Transferase* 399 U/L (12-35); Bilirubin Total* 1.5 mg/dL (0.1-1.5); Blood Urea Nitrogen* 23 mg/dL (7-30); Carbon Dioxide* 29 mmol/L (20-32); Creatinine* 1.4 mg/dL (0.5-1.5); Estimated Glomerular Filt Rate 59 ml/min; Glucose* 187 mg/dL (60-115); Total Protein* 7.8 g/dL (6.0-8.3)
[2023-07-29 17:33] LABS: Calcium* 8.6 mg/dL (8.4-10.6)
[2023-07-29 17:39] LABS: Lipase* 338 U/L (23-300)
[2023-07-29 18:55] LABS: INR 0.97 (0.91-1.10); Prothrombin Time 13.5 Seconds
[2023-07-29] MEDS: METOCLOPRAMIDE 10 MG TABLET PO ×2 (20:52)
[2023-07-31 13:00] LABS: Hep A Ab, IgM Negative (Negative); Hep B Core Ab, IgM Negative (Negative); Hep B Surface Antigen Negative (Negative); Hep C Ab by CIA Index 0.13 IV; Hep C Ab by CIA Interp Negative (Negative)
== END 2023-07-29 20:53 | disposition home or self-care (01) ==
PROVIDERS: Emergency Provider Student in an Organized Health Care Education/Training Program; PCP Family Medicine
DX: K76.0 Fatty (change of) liver, not elsewhere classified (principal); R11.11 Vomiting without nausea
CPT/HCPCS: 36415; 74177; 80053; 80074; 80076; 83690; 85025; 85610; 86708; 86803; 87086; 87340; 99283; 99284; A9270; J7030; Q9967

== ENCOUNTER 2023-08-16 10:00 | Outpatient (CLI) | payer OTHER, SELFPAY ==
--- OUTSIDE RECORDS SUMMARY | 2023-08-16 10:03 | XMS_ITS | Encounter Summary ---
Author Name Unknown Organization [facility] Address [address] [place] [address] Care Team Providers Care Lock Plater Name Role Phone Unavailable Primary Care Provider Unavailabl e Encounter Details Date Type Department Care Team (Late st Contact Info) Description 06/18/2023 Orders Only Division of Nephrology and Hypertension in [place], [place] [address] [place] [address] Randy Sanchez Jr., D.O. [address] [place] [address] Social History Tobacco Use Types Packs/Day Years [...]
--- OUTSIDE RECORDS SUMMARY | 2023-08-16 10:03 | XMS_ITS ---
Author Name Unknown Organization [facility] Address [address] [place] [address] Care Team Providers Care Department Of Mathematics Chair Name Role Phone Unavailable Unavailable Unavailable Surgery Details Not on file Complications Check Surgery Details section. Procedure Estimated Blood Loss Check Surgery Details section. Procedure Findings Check Surgery Details section. Procedure Specimens Taken Check Surgery Details section.
--- OUTSIDE RECORDS SUMMARY | 2023-08-16 10:03 | XMS_ITS | Encounter Summary ---
Author Name Unknown Organization [facility] Address [address] [place] [address] Care Team Providers Care Forest Fire Specialist Supervisor Name Role Phone Unavailable Primary Care Provider Unavailabl e Reason for Visit * Appointment Request (Routine) - Closed Specialty Diagnoses / Procedures Referred By Contmedhat t Referred To Contact Nephrology and Hypertension Referral ID Status Reason Start Date Expiration Date Visits Re quested Visits Authorized [id number] Closed 05/14/2023 05/13/2024 1 1 Encounter Details Date Type Department Care Team (Latest Contact Info) Description 05/25/2023 1:30 PM DIGITAL SALES ASSISTANT External Outreach Division of Nephrology and Hypertension in [place], [place] [address] [place] [address] Randy Sanchez Jr., D.O. [address] [place] [address] Hypertension And Chronic Kidney Disease Stage 1 [...] Comments Blood Pressure 162/98 05/25/2023 1:40 PM DIGITAL SALES ASSISTANT Pulse 116 05/25/2023 1:40 PM DIGITAL SALES ASSISTANT Temperature - - Respiratory Rate - - Oxygen Saturation - - Inhaled Oxygen Concentration - - Weight 103 kg (226 lb 6.6 oz) 05/25/2023 1:40 PM DIGITAL SALES ASSISTANT Height 180.3 cm (5' 10.98) 05/25/2023 1:40 PM Marlyn DICKSON Body Mass Index 31.59 05/25/2023 1:40 PM DIGITAL SALES ASSISTANT documented in this encounter Progress Notes * Randy Sanchez Jr., D.O. - 05/25/2023 1:30 PM CST Referring Provider: DR Newton SUBJECTIVE REASON FOR VISIT [facility] Follow-up regards testing, [...] Time: 20 minutes Randy Sanchez Jr., D.O. TAL SALES ASSISTANT documented in this encounter Plan of Treatment Not on file documented as of this encounter Visit Diagnoses Diagnosis Hypertension And Chronic Kidney Disease Stage 1- Primary Diabetes Mellitus Type 2 (HCC) Urolithiasis Hyperlipidemia Mixed Persistent Depressive Disorder documented in this encounter
--- OUTSIDE RECORDS SUMMARY | 2023-08-16 10:03 | XMS_ITS | Encounter Summary ---
Author Name Unknown Organization [facility] Address [address] [place] [address] Care Team Providers Care Seal Skinner Name Role Phone Unavailable Primary Care Provider Unavailabl e Encounter Details Date Type Department Care Team (Late st Contact Info) Description 06/18/2023 Clinical Communication Division of Nephrology and Hypertension in [place], [place] [address] [place] [address] Randy Sanchez Jr., D.O. [address] [place] [address] Social History Tobacco Use Types Packs/Day Years [...]
--- OUTSIDE RECORDS SUMMARY | 2023-08-16 10:03 | XMS_ITS | Encounter Summary ---
Author Name Unknown Organization [facility] Address [address] [place] [address] Care Team Providers Care Machine Bander And Cellophaner Helper Name Role Phone Unavailable Primary Care Provider Unavailabl e Reason for Visit * Appointment Request (Routine) - Closed Specialty Diagnoses / Procedures Referred By Contmedhat t Referred To Contact Nephrology and Hypertension Jorge Newton M.D. [address], [place] [address] Referral ID Status Reason Start Date Expiration Date Visits Re quested Visits Authorized [id number] Closed 05/07/2023 05/06/2024 1 1 Encounter Details Date Type Department Care Team (Latest Contact Info) Description 05/10/2023 1:00 PM PIANO MAKER External Outreach Division of Nephrology and Hypertension in [place], [place] [address] [place] [address] Randy Sanchez Jr., D.O. [address] [place] [address] Proteinuria (Primary Dx); Diabetes Mellitus Type 2 [...] Comments Blood Pressure 152/70 05/10/2023 1:17 PM PIANO MAKER Pulse 105 05/10/2023 1:17 PM PIANO MAKER Temperature - - Respiratory Rate - - Oxygen Saturation - - Inhaled Oxygen Concentration - - Weight 105 kg (232 lb 2.3 oz) 05/10/2023 1:17 PM PIANO MAKER Height 180.3 cm (5' 10.98) 05/10/2023 1:17 PM Marlyn DICKSON Body Mass Index 32.39 05/10/2023 1:17 PM PIANO MAKER documented in this encounter Progress Notes * Randy Sanchez Jr., D.O. - 05/10/2023 1:00 PM CST Referring Provider: DR Jorge Newton SUBJECTIVE REASON FOR VISIT [facility] Proteinuria, metabolically and [...] Time: 1 hour Randy Sanchez Jr., D.O. O MAKER documented in this encounter Plan of Treatment Not on file documented as of this encounter Visit Diagnoses Diagnosis Proteinuria- Primary Diabetes Mellitus Type 2 (HCC) Urolithiasis Hyperlipidemia Mixed Persistent Depressive Disorder documented in this encounter
--- OUTSIDE RECORDS SUMMARY | 2023-08-16 10:03 | XMS_ITS | Encounter Summary ---
Author Name Unknown Organization [facility] Address [address] [place] [address] Care Team Providers Care Laboratory Chief Name Role Phone Unavailable Primary Care Provider Unavailabl e Reason for Visit * Reason Onset Date Comments chlorthalidone side effects 07/19/2023 Encounter Details Date Type Department Care Team (Latest Contact Info) Description 07/19/2023 Clinical Communication Division of Nephrology and Hypertension in [place], [place] [address] [place] [address] Randy Sanchez Jr., D.O. [address] [place] [address] chlorthalidone side effects Social History Tobacco Use [...] CDT Caller is: patient Preferred Communication Method: [phone] (home) Reason for call: Mr. Villagomez is [...]
--- OUTSIDE RECORDS SUMMARY | 2023-08-16 10:03 | XMS_ITS | Clinical Summary ---
Author Name Unknown Organization [facility] Address [address] [place] [address] Care Team Providers Care Telesales Consultant Name Role Phone Jorge Newton MD Primary Care Provider [phone] Allergies Active Allergy Reactions Criticality Noted Date [...] CDT Plan of Treatment Not on file Advance Directives For more information, please contact: [phone] * Full Code (Latest Code Status on File) Date Activated Date Inactivated Comments 11/06/2019 8:29 PM 11/10/2019 2:42 PM All basic an d advanced life-sustaining interventions are performed as appropriate Question Answer Comments Code status determined by: Discussion with meagan nt/ legal decision maker Care Teams Telesales Consultant Relationship Specialty Start Date End Date Jorge Newton MD PCP - General Family Practice 11/06/19
--- OUTSIDE RECORDS SUMMARY | 2023-08-16 10:03 | XMS_ITS | Clinical Summary ---
Author Name Unknown Organization [facility] Address [address] [place] [address] Care Team Providers Care Storage And Backup Administrator Name Role Phone Unavailable Primary Care Provider Unavailabl e Source Comments Patient records contain information from all sites at [facility]. For routine questions regarding patient records, call [phone] during business hours, M-F 8:00 AM - 5:00 PM Central Time. Record requests for emergency care only can be directed to [phone] at any time.[facility] Allergies Active Allergy Reactions Criticality Noted Date [...] Communication Division of Nephrology and Hypertension in [place], [place] [address] [place] [address] Randy Sanchez Jr. D.O. chlorthalidone side effects 06/18/2023 Documentation Division of Nephrology and Hypertension in [place], [place] [address] [place] [address] Randy Sanchez Jr., D.O. 06/18/2023 Orders Only Division of Nephrology and Hypertension in [place], [place] [address] [place] [address] Randy Sanchez Jr., D.OBenjamin 06/18/2023 Clinical Communication Division of Nephrology and Hypertension in [place], [place] [address] [place] [address] Randy Sanchez Jr. D.O. 05/25/2023 1:30 PM SECONDARY MARKET MANAGER External Outreach Division of Nephrology and Hypertension in [place], [place] [address] [place] [address] Randy Sanchez Jr. D.O. Hypertension And Chronic [...] Comments Blood Pressure 162/98 05/25/2023 1:40 PM SECONDARY MARKET MANAGER Pulse 116 05/25/2023 1:40 PM SECONDARY MARKET MANAGER Temperature - - Respiratory Rate - - Oxygen Saturation - - Inhaled Oxygen Concentration - - Weight 103 kg (226 lb 6.6 oz) 05/25/2023 1:40 PM SECONDARY MARKET MANAGER Height 180.3 cm (5' 10.98) 05/25/2023 1:[address] Body Mass Index 31.59 05/25/2023 1:40 PM SECONDARY MARKET MANAGER Plan of Treatment Health Maintenance Due Date [...]
--- OUTSIDE RECORDS SUMMARY | 2023-08-16 10:03 | XMS_ITS | Encounter Summary ---
Author Name Unknown Organization [facility] Address [address] [place] [address] Care Team Providers Care Exchange Consultant Name Role Phone Unavailable Primary Care Provider Unavailabl e Encounter Details Date Type Department Care Team (Late st Contact Info) Description 06/18/2023 Documentation Division of Nephrology and Hypertension in [place], [place] [address] [place] [address] Randy Sanchez Jr., D.O. [address] [place] [address] Social History Tobacco Use Types Packs/Day Years [...] or performing activities which require mental acuity. EL RETROFIT DESIGNER documented in this encounter Plan of Treatment Not on file documented as of this encounter Visit Diagnoses Not on filedocumented in this encounter
--- OUTSIDE RECORDS SUMMARY | 2023-08-16 10:03 | XMS_ITS | Clinical Summary ---
Author Name Unknown Organization [facility] Address [place], [place] [address] Care Team Providers Care Correctional Therapy Director Name Role Phone Unavailable Primary Care Provider [...] Comments Blood Pressure 146/80 04/20/2011 3:00 PM ALTERATION TAILOR Pulse 61 04/20/2011 3:00 PM ALTERATION TAILOR Temperature 36 ??C (96.8 ??F) 04/20/2011 1:30 PM ALTERATION TAILOR Respiratory Rate 16 04/20/2011 3:00 PM ALTERATION TAILOR Oxygen Saturation 98% 04/20/2011 1:30 PM ALTERATION TAILOR Inhaled Oxygen Concentration - - Weight 100.2 kg (220 lb 14.4 oz) 04/20/2011 9:07 AM ALTERATION TAILOR Height 177.8 cm (5' 10) 04/20/2011 9:07 AM ALTERATION TAILOR Body Mass Index 31.7 04/20/2011 9:07 AM ALTERATION TAILOR Plan of Treatment Not on file Medical Devices Implanted Type Area Home Health Care Case Manager Device Identifier Shelf Expiration Date Model / Serial / Lot Stent Contour [id number] - [id number] Implanted:Qty: 1 on 04/20/2011 at [facility] Left: Ureter [facility] [id number] / / [id number] Advance Directives * Full Code (Latest Code Status on File) Date Activated Date Inactivated Comments 04/20/2011 8:28 AM 04/20/2011 6:30 PM
--- OUTSIDE RECORDS SUMMARY | 2023-08-16 10:03 | XMS_ITS | Referral Summary ---
Author Name Unknown Organization [facility] Address [address] [place] [address] Care Team Providers Care Manager Monitoring Name Role Phone Jorge Newton MD Primary Care Provider [phone] Allergies Active Allergy Reactions Criticality Noted Date [...] Advance Directives For more information, please contact: [phone] * Full Code (Latest Code Status on File) Date Activated Date Inactivated Comments 11/06/2019 8:29 PM 11/10/2019 2:42 PM All basic an d advanced life-sustaining interventions are performed as appropriate Question Answer Comments Code status determined by: Discussion with meagan nt/ legal decision maker Care Teams Manager Monitoring Relationship Specialty Start Date End Date Jorge Newton MD PCP - General Family Practice 11/06/19
--- OUTSIDE RECORDS SUMMARY | 2023-08-16 10:03 | XMS_ITS | Referral Summary ---
Author Name Unknown Organization [facility] Address [address] [place] [address] Care Team Providers Care Finish Production Manager Name Role Phone Unavailable Primary Care Provider Unavailabl e Source Comments Patient records contain information from all sites at [facility]. For routine questions regarding patient records, call [phone] during business hours, M-F 8:00 AM - 5:00 PM Central Time. Record requests for emergency care only can be directed to [phone] at any time.[facility] Encounters Date Type Department Care Team Description 07/19/2023 Clinical Communication Division of Nephrology and Hypertension in [place], [place] [address] [place] [address] Randy Sanchez Jr., D.O. chlorthalidone side effects 06/18/2023 Documentation Division of Nephrology and Hypertension in [place], [place] [address] [place] [phone] Randy Sanchez Jr., D.O. 06/18/2023 Orders Only Division of Nephrology and Hypertension in [place], [place] [address] [place] [address] Randy Sanchez Jr., D.O. 06/18/2023 Clinical Communication Division of Nephrology and Hypertension in [place], [place] [address] [place] [phone] Randy Sanchez Jr., D.O. 05/25/2023 1:30 PM SMOCKER External Outreach Division of Nephrology and Hypertension in [place], [place] [address] [place] [phone] Randy Sanchez Jr., D.O. Hypertension And Chronic [...] Comments Blood Pressure 162/98 05/25/2023 1:40 PM SMOCKER Pulse 116 05/25/2023 1:40 PM SMOCKER Temperature - - Respiratory Rate - - Oxygen Saturation - - Inhaled Oxygen Concentration - - Weight 103 kg (226 lb 6.6 oz) 05/25/2023 1:40 PM SMOCKER Height 180.3 cm (5' 10.98) 05/25/2023 1:[address] Body Mass Index 31.59 05/25/2023 1:40 PM SMOCKER Plan of Treatment Not on file Procedures Procedure Name Priority Date/Time Associated Diagnosis Comments EXTI LIPID PANEL, S Routine 11/07/2019 7 :37 AM CDT EXTI SODIUM, S/P Routine 11/06/2019 5:29 PM CDT EXTI COMPREHENSIVE METABOLIC PANEL, S/P Routine 11/06/2019 12:19 PM CDT from Last 3 Months or Most Recently Relevant to Health Maintenance
--- NOTE | 2023-08-16 11:09 | W.ANESCHARGE ---
Anesthesia Charges Start Date/Time Anesthesia Start Date: 08/16/23 Anesthesia Start Time: 10:50 Stop Date/Time Anesthesia Stop Date: 08/16/23 Anesthesia Stop Time: 11:08
--- NOTE | 2023-08-16 11:22 | W.ANESCHARGE ---
Anesthesia Charges Start Date/Time Anesthesia Start Date: 08/16/23 Anesthesia Start Time: 10:50 Stop Date/Time Anesthesia Stop Date: 08/16/23 Anesthesia Stop Time: 11:08
--- NOTE | 2023-08-16 11:23 | W.ANESCHARGE ---
Anesthesia Charges Start Date/Time Anesthesia Start Date: 08/16/23 Anesthesia Start Time: 10:50 Stop Date/Time Anesthesia Stop Date: 08/16/23 Anesthesia Stop Time: 11:08
== END 2023-08-16 10:01 | disposition home or self-care (01) ==
LOC: OP CLINIC 10:01
PROVIDERS: PCP Family Medicine; Visit Provider Surgery
DX: R11.15 Cyclical vomiting syndrome unrelated to migraine (principal)
CPT/HCPCS: 00731; 00811; 43239; 88305; J2704; J3490

== ENCOUNTER 2024-01-06 11:41 | Outpatient (CLI) | payer OTHER, SELFPAY ==
--- OUTSIDE RECORDS SUMMARY | 2024-01-06 11:46 | XMS_ITS | Referral Summary ---
Author Organization [facility] Address [address] [place] [address] Care Team Providers Care Single Stroke Preformer Name Role Phone Unavailable Primary Care Provider Unavailabl e Source Comments Patient records contain information from all sites at [facility]. For routine questions regarding patient records, call [phone] during business hours, M-F 8:00 AM - 5:00 PM Central Time. Record requests for emergency care only can be directed to [phone] at any time.[facility] Allergies Active Allergy Reactions Criticality Noted Date [...] (10 mg total) by mouth daily. 05/10/2023 05/09/2024 Active glimepiride (AMARYL) 4 mg tablet Take 1 tablet (4 mg total) by mouth daily with breakfast. 05/10/2023 05/09/2024 Active citalopram (CeleXA) 40 mg tablet Take 1 tablet (40 mg total) by mouth daily. 05/10/2023 05/09/2024 Active chlorthalidone (HYGROTON) 25 mg tablet Take 0.5 tablets (12.5 mg total) by mouth daily. 45 tablet 3 06/18/2023 06/17/2024 Active Additional Information Patient not taking.Reported on 07/19/2023 ondansetron ODT (ZOFRAN-ODT) 4 mg disintegrating tablet Dissolve 1 tablet (4 mg total) in the mouth every 8 (eight) hours as needed for nausea or vomiting. 20 tablet 07/22/2023 Active Active Problems Problem Noted Date Diagnosed Date Hypertensive Chronic Kidney Disease With Stage 1 Through Stage 4 Chronic Kidney Disease, Or Unspecified Chronic Kidney Disease 05/25/2023 Proteinuria 05/10/2023 Urolithiasis 05/10/2023 Diabetes Mellitus [...] Comments Blood Pressure 162/98 05/25/2023 1:40 PM AIRBORNE WEAPONS TECHNICAL MANAGER Pulse 116 05/25/2023 1:40 PM AIRBORNE WEAPONS TECHNICAL MANAGER Temperature - - Respiratory Rate - - Oxygen Saturation - - Inhaled Oxygen Concentration - - Weight 103 kg (226 lb 6.6 oz) 05/25/2023 1:40 PM AIRBORNE WEAP[employer] TECHNICAL MANAGER Height 180.3 cm (5' 10.98) 05/25/2023 1:[address] Body Mass Index 31.59 05/25/2023 1:40 PM AIRBORNE WEAP[employer] TECHNICAL MANAGER Plan of Treatment Not on file
--- OUTSIDE RECORDS SUMMARY | 2024-01-06 11:46 | XMS_ITS ---
Author Organization [facility] Address [address] [place] [address] Care Team Providers Care Solidworks Designer Name Role Phone Unavailable Unavailable Unavailable Surgery Details Not on file Complications Check Surgery Details section. Procedure Estimated Blood Loss Check Surgery Details section. Procedure Findings Check Surgery Details section. Procedure Specimens Taken Check Surgery Details section.
--- OUTSIDE RECORDS SUMMARY | 2024-01-06 11:46 | XMS_ITS | Referral Summary ---
Author Organization [facility] Address [address] [place] [address] Care Team Providers Care Polygraph Technician Name Role Phone Jorge Newton MD Primary Care Provider [phone] Allergies Active Allergy Reactions Criticality Noted Date [...] Advance Directives For more information, please contact: [phone] * Full Code (Latest Code Status on File) Date Activated Date Inactivated Comments 11/06/2019 8:29 PM 11/10/2019 2:42 PM All basic an d advanced life-sustaining interventions are performed as appropriate Question Answer Comments Code status determined by: Discussion with meagan nt/ legal decision maker Care Teams Polygraph Technician Relationship Specialty Start Date End Date Jorge Newton MD [facility] [address], [place] [address] PCP - General Family Practice 11/06/19
--- OUTSIDE RECORDS SUMMARY | 2024-01-06 11:46 | XMS_ITS | Clinical Summary ---
Author Organization [facility] Address [address] [place] [address] Care Team Providers Care Operations Agent Name Role Phone Jorge Newton MD Primary Care Provider [phone] Allergies Active Allergy Reactions Criticality Noted Date [...] Advance Directives For more information, please contact: [phone] * Full Code (Latest Code Status on File) Date Activated Date Inactivated Comments 11/06/2019 8:29 PM 11/10/2019 2:42 PM All basic an d advanced life-sustaining interventions are performed as appropriate Question Answer Comments Code status determined by: Discussion with meagan nt/ legal decision maker Care Teams Operations Agent Relationship Specialty Start Date End Date Jorge Newton MD [facility] [address], [place] [address] PCP - General Family Practice 11/06/19
--- OUTSIDE RECORDS SUMMARY | 2024-01-06 11:46 | XMS_ITS | Clinical Summary ---
Author Organization [facility] Address [address] [place] [address] Care Team Providers Care Operators Teacher Name Role Phone Unavailable Primary Care Provider Unavailabl e Source Comments Patient records contain information from all sites at [facility]. For routine questions regarding patient records, call [phone] during business hours, M-F 8:00 AM - 5:00 PM Central Time. Record requests for emergency care only can be directed to [phone] at any time.[facility] Allergies Active Allergy Reactions Criticality Noted [...] Comments Blood Pressure 162/98 05/25/2023 1:40 PM AIR OPERATIONS MANAGER Pulse 116 05/25/2023 1:40 PM AIR OPERATIONS MANAGER Temperature - - Respiratory Rate - - Oxygen Saturation - - Inhaled Oxygen Concentration - - Weight 103 kg (226 lb 6.6 oz) 05/25/2023 1:40 PM AIR OPERATIONS MANAGER Height 180.3 cm (5' 10.98) 05/25/2023 1:[address] Body Mass Index 31.59 05/25/2023 1:40 PM AIR OPERATIONS MANAGER Plan of Treatment Health Maintenance Due [...] Press ure Check / Re-check 08/23/2023 05/25/2023 COVID-19 Vaccine (7 2023-2 5 season) 2023 03/02/2023, 01/09/2022, 08/03/2021, Additional history exists Influenza Vaccine (#1) 2024 , 01/09/2022, 01/21/2021, Additional history exists Lipid (Cholesterol) Screening 11/06/2024 11/07/2019 Cologuard 05/16/2026 05/16/2023 Colorectal Cancer Screening 05/16/2026 Zoster Vaccines Completed 08/25/2018, 04/14, 04/24/2018
--- OUTSIDE RECORDS SUMMARY | 2024-01-06 11:46 | XMS_ITS | Clinical Summary ---
Author Organization [facility] Address [place], [place] [address] Care Team Providers Care Health Safety Manager Name Role Phone Unavailable Primary Care [...] Comments Blood Pressure 146/80 04/20/2011 3:00 PM HUMAN RESOURCES FILE CLERK Pulse 61 04/20/2011 3:00 PM HUMAN RESOURCES FILE CLERK Temperature 36 ??C (96.8 ??F) 04/20/2011 1:30 PM HUMAN RESOURCES FILE CLERK Respiratory Rate 16 04/20/2011 3:00 PM HUMAN RESOURCES FILE CLERK Oxygen Saturation 98% 04/20/2011 1:30 PM HUMAN RESOURCES FILE CLERK Inhaled Oxygen Concentration - - Weight 100.2 kg (220 lb 14.4 oz) 04/20/2011 9:07 AM HUMAN RESOURCES FILE CLERK Height 177.8 cm (5' 10) 04/20/2011 9:07 AM HUMAN RESOURCES FILE CLERK Body Mass Index 31.7 04/20/2011 9:07 AM HUMAN RESOURCES FILE CLERK Plan of Treatment Not on file Medical Devices Implanted Type Area Flanging Operator Device Identifier Shelf Expiration Date Model / Serial / Lot Stent Contour [id number] - [id number] Implanted:Qty: 1 on 04/20/2011 at [facility] Left: Ureter [facility] [id number] / / [id number] Advance Directives * Full Code (Latest Code Status on File) Date Activated Date Inactivated Comments 04/20/2011 8:28 AM 04/20/2011 6:30 PM
== END 2024-01-06 11:42 | disposition home or self-care (01) ==
PROVIDERS: PCP Family Medicine; Visit Provider Nurse Practitioner Family
DX: I12.9 Hypertensive chronic kidney disease with stage 1 through stage 4 chronic kidney disease, or unspecified chronic kidney disease (principal); E11.22 Type 2 diabetes mellitus with diabetic chronic kidney disease; N18.1 Chronic kidney disease, stage 1; Z12.5 Encounter for screening for malignant neoplasm of prostate
CPT/HCPCS: 80053; G0103

== ENCOUNTER 2024-09-06 13:05 | Outpatient (CLI) | payer OTHER, SELFPAY | END 2024-09-06 13:06 | disposition home or self-care (01) | LOC: NFLDREF 09-08 15:32 | PROVIDERS: PCP Family Medicine; Referring Provider Family Medicine; Visit Provider Nurse Practitioner Family | DX: E11.8 Type 2 diabetes mellitus with unspecified complications (principal); E78.49 Other hyperlipidemia; B35.1 Tinea unguium; Z79.84 Long term (current) use of oral hypoglycemic drugs | CPT/HCPCS: 80053; 80061; 82043; 82570 ==

== ENCOUNTER 2024-09-29 10:46 | Outpatient (CLI) | payer OTHER, SELFPAY | END 2024-09-29 10:47 | disposition home or self-care (01) | PROVIDERS: PCP Family Medicine; Visit Provider Podiatrist | DX: B35.1 Tinea unguium (principal) | CPT/HCPCS: 84450; 84460 ==

== ENCOUNTER 2025-02-15 11:01 | Outpatient (CLI) | payer OTHER, SELFPAY | END 2025-02-15 11:02 | disposition home or self-care (01) | LOC: FRMREF 11:02 | PROVIDERS: PCP Family Medicine; Visit Provider Nurse Practitioner Family | DX: E11.8 Type 2 diabetes mellitus with unspecified complications (principal) | CPT/HCPCS: 82043; 82570 ==